=== PATIENT | female | born 1950 | race African-American/Black ===

== ENCOUNTER 2016-07-13 20:31 | Emergency (ER) | payer MEDICAID | END 2016-07-13 20:50 | disposition left against medical advice (07) | LOC: ER 20:31 | DX: I10 Essential (primary) hypertension (principal); M79.603 Pain in arm, unspecified ==

== ENCOUNTER 2016-07-22 09:16 | Inpatient (IN) | payer MEDICAID ==
--- NOTE | 2016-07-22 09:31 | ED Physician Chart ---
Chief Complaint/HPI - Patient Information Date Seen:: 07/22/16 Time Seen:: 09:29 Chief Complaint:: sob History of Present Illness:: pt here for asthma exacerbation. has severe sob today despite recent use of a albuterol mdi and mucinex. has a cough prod of yellow sputum. no fever. pos st. no leg edema or pain. prior smoking hx....none recently. no known hx of cad or dm. chest sore w breathing but no cp at rest Allergies:: Allergies Allergy/AdvReac Type Severity Reaction Status Date / Time flu vaccine ts Allergy Verified 01/13/16 00:40 (36mos+) [From Fluarix] meperidine HCl [From Demerol] Allergy Verified 01/13/16 00:40 Historian:: Patient Review of Systems - Review of Systems General/Constitutional: No fever, No chills, No weight loss, No weakness, No diaphoresis, No edema, No loss of appetite Skin: No skin lesions, No rash, No bruising Head: No headache, No light-headedness Eyes: No loss of vision, No pain, No diplopia ENT: No earache, No nasal drainage, No sore throat, No tinnitus Neck: No neck pain, No swelling, No thyromegaly, No stiffness, No mass noted Cardio Vascular: No chest pain, No palpitations, No PND, No orthopnea, No edema Pulmonary: SOB, Cough, Sputum, Wheezing GI: No nausea, No vomiting, No diarrhea, No pain, No melena, No hematochezia, No constipation, No hematemesis G/U: No dysuria, No frequency, No hematuria Musculoskeletal: No bone or joint pain, No back pain, No muscle pain Endocrine: No polyuria, No polydipsia Psychiatric: No prior psych history, No depression, No anxiety, No suicidal ideation Hematopoietic: No bruising, No lymphadenopathy Allergic/Immuno: No urticaria, No angioedema Neurological: No syncope, No focal symptoms, No weakness, No paresthesia, No headache, No seizure, No dizziness, No confusion, No vertigo Past Medical History - Past Medical History Past Medical History: HTN, CHF (?pt denies this dx but...gets intermittent leg edema), Asthma/COPD, Other ("Renny Autoimmune dz") Social History: Non Smoker (quit x 7 yrs), No Alcohol Medication: Reviewed Family Medical History - Family Member Mother History Unknown: Yes Ethnicity: Non- Living Status: Hx Family Diabetes: Yes Physical Exam - Physical Examination General/Constitutional: Awake, Well-developed, well-nourished, Alert, No distress, GCS 15, Non-toxic appearing, Ambulatory Other Gen/Cons comments:: alert.nontoxic, mod obese Head: Atraumatic Eyes: Lids, conjuctiva normal, PERRL, EOMI Skin: Nl inspection, No rash, No skin lesions, No ecchymosis, Well hydrated, No lymphadenopathy ENMT: External ears, nose nl, Nasal exam nl, Lips, teeth, gums nl Neck: Nontender, Full ROM w/o pain, No JVD, No nuchal rigidity, No bruit, No mass, No stridor Respiratory: Nl effort/Exclusion Other Respiratory comments:: loud wheezing and limited chest expansion. pt can speak full sentences. Cardio Vascular: RRR, No murmur, gallop, rubs, NL S1 S2 GI: No tenderness/rebounding/guarding, No organomegaly, No hernia, Normal BS's, Nondistended, No mass/bruits, No McBurney tenderness : No CVA tenderness Extremities: No tenderness or effusion, Full ROM, normal strength in all extremities, No edema, Normal digits & nails Other Extremities comments:: no edema. no homans sx Neuro/Psych: Alert/oriented, DTR's symmetric, Normal sensory exam, Normal motor strength, Judgement/insight normal, Mood normal, Normal gait, No focal deficits Misc: normal gait, Normal back, No paraspinal tenderness Labs/Radiology/EKG Results - Lab Results Results: Laboratory Tests 07/22/16 07/22/16 07/22/16 09:47 09:47 09:47 WBC 5.7 RBC 4.22 Hgb 12.3 Hct 37.6 MCV 89.0 MCH 29.2 MCHC Differential 32.9 RDW 14.1 Plt Count 247 MPV 9.2 Neutrophils % 68.8 Lymphocytes % 18.2 L Monocytes % 7.4 Eosinophils % 5.3 H Basophils % 0.3 Sodium 138 Potassium 3.7 Chloride 107 Carbon Dioxide 26.8 Anion Gap 7.9 BUN 10 Creatinine 0.8 Est GFR ( Amer) > 60.0 Est GFR (Non-Af Amer) > 60.0 BUN/Creatinine Ratio 12.5 Glucose 93 Calcium 9.3 Total Bilirubin 0.4 AST 17 ALT 13 Alkaline Phosphatase 89 Troponin I < 0.01 L Total Protein 7.8 Albumin 4.1 Globulin 3.7 Albumin/Globulin Ratio 1.1 - Radiology Results Results: cxr read by lisa Ayala as chronic changes no chf. no focal infiltrate - EKG Interpretations EKG Time:: 09:50 Rhythm: nsr [place]: 36 Rate: 61 Comments:: wnl ED Septic Shock - . Is Septic Shock (SBP<90, OR Lactate>4 mmol\\L) present?: No Reassessment (Disposition) - Reassessment Reassessment:: pt still is feeling sob. wheezing persists despite 2 duonebs and 125 solumedrol. pt not feeling well enough to go home. loren Conde will admit to tele Reassessment Condition:: Improved - Diagnosis Diagnosis:: asthma exacerbation bronchitis - Patient Disposition Admitted to:: Telemetry Condition at Disposition:: Improved
[2016-07-22] MEDS ORDERED: Albuterol/Ipratropium Neb 3 ML AERS HHN ONE ×4 (09:32→11:06)
[2016-07-22 09:57] LABS: % BASOPHILS 0.3 % (0.0-2.0); % EOSINOPHILS 5.3 % (0.0-5.0); % LYMPHOCYTES 18.2 % (20.0-50.0); % MONOCYTES 7.4 % (2.0-10.0); % NEUTROPHILS 68.8 % (40.0-80.0); HEMATOCRIT 37.6 % (35.0-45.0); HEMOGLOBIN 12.3 gm/dL (11.7-15.5); MEAN CORPUSCULAR HEMOGLOBIN 29.2 pg (27.0-31.0); MEAN CORPUSCULAR HGB CONC 32.9 pg (28.0-36.0); MEAN PLATELET VOLUME 9.2 fl; PLATELET COUNT 247 Th/cmm (150-400); RED BLOOD COUNT 4.22 Mil/cmm (3.80-5.10); RED CELL DISTRIBUTION WIDTH 14.1 % (11.5-20.0); WHITE BLOOD COUNT 5.7 Th/cmm (4.8-10.8)
[2016-07-22 10:13] LABS: ALB/GLOB RATIO 1.1 (1.0-1.8); ALKALINE PHOSPHATASE 89 U/L (34-104); ANION GAP 7.9 (7.0-16.0); BILIRUBIN,TOTAL 0.4 mg/dL (0.3-1.0); BUN - UREA NITROGEN 10 mg/dL (7-25); BUN/CREATININE RATIO 12.5; CALCIUM SERUM 9.3 mg/dL (8.6-10.3); CARBON DIOXIDE 26.8 mEq/L (21.0-31.0); CHLORIDE 107 mEq/L (98-107); CREATININE - SERUM 0.8 mg/dL (0.6-1.2); GLUCOSE 93 mg/dL (70-105); POTASSIUM SERUM 3.7 mEq/L (3.5-5.1); SGOT 17 U/L (13-39); SGPT/ALT 13 U/L (7-52); SODIUM SERUM 138 mEq/L (136-145)
--- NOTE | 2016-07-22 10:41 | Diagnostic Imaging Report ---
Chest single view INDICATION: Yellow productive cough, shortness of breath COMPARISON: Chest x-ray 09/17/2014 FINDINGS: Chronic lung changes are seen with no focal consolidation or pleural effusions. Heart size is borderline prominent. Atherosclerosis is noted. Degenerative changes of spine are noted with spinal scoliosis. Degenerative changes of the shoulder joints are also noted. IMPRESSION: Chronic lung changes with no focal consolidation or radiographic evidence of CHF Borderline cardiomegaly with atherosclerotic vascular disease.
--- NOTE | 2016-07-22 14:34 | Admit Criteria Form ---
Admit Criteria Forms - Admit Criteria Diagnosis: ASTHMA Clinical Indications for Admission to Inpatient Care (Place 'X' for any and all applicable criteria): Admission is indicated for ANY ONE of the following (1)(2)(3)(4)(5): [ ]I. Absent or markedly diminished breath sounds (silent chest) [ ]II. Oxygen saturation < 92% [ ]III. PaCO2 = / > 42 mm Hg (5.6 kPa) [ ]IV. Peak expiratory flow rate < 40% of predicted or personal best after treatment. [ ]V. Peak expiratory flow rate < 33% of predicted or personal before after treatment [ ]. Change in mental status [ ]VII. Ventilatory support required [ ]VIII. PaO2 < 60 mm Hg (8.0 kPa) [ ]IX. Cyanosis [ ]X. Cardiac dysrhythmia (e.g., bradycardia) [ ]XI. Hemodynamic instability [ ]XII. Radiographic evidence of complication requiring inpatient treatment (e.g., pneumonia, pneumothorax) [ X]XIII. Inpatient admission required rather than observation care (also use Asthma: Observation Care guideline as appropriate) because of ANY ONE of the following: [ ]a) Respiratory finding that is severe or persistent (eg, dyspnea, tachypnea, accessory muscle use) [ ]b) Airflow measurements less than 60% of predicted or personal best that persist (e.g., over 24 hours) or worsen despite treatments [ ]c) Supplemental oxygen or respiratory treatments for over 24 hours that are performable only in acute inpatient setting [X ]d) Other condition, treatment or monitoring requiring inpatient admission. Extended stay beyond goal length of stay may be needed for (26)(27)(28): [ ]a) Severe respiratory failure (23) (29) (30) [ ]b) Secondary causes and complications (25) [ ]c) Status asthmaticus [ ]d) Chronic obstructive asthma [ ]e) Older patients (29) [ ]f) Slow resolution [ ]g) Clinically significant exacerbation of comorbidities (eg, patricio. heart failure, atrial fibrillation) The original [email or web address] content created by [email or web address] has been revised. The portions of the content which have been revised are identified through the use of italic text or in bold, and [facility] has neither reviewed nor approved the modified material. All other unmodified content is copyright [facility] Please see references footnoted in the original [facility] edition 2016 Admit Criteria Met?: Yes
[2016-07-22 15:08] VITALS: BP 133/69
[2016-07-22] MEDS: Hydrocodone/APAP 10 mg/325 mg Tab PO PRN (15:29)
[2016-07-22] MEDS: Sodium Chloride 0.9% 1,000 ML IV SCH (15:30)
[2016-07-22] MEDS: cefTRIAXone 1 GM in Sodium Chloride 0.9% 100 ML IV SCH (15:30)
[2016-07-22] MEDS: Albuterol/Ipratropium Neb 3 ML AERS HHN SCH ×3 (16:08→23:09)
[2016-07-22] MEDS: Azithromycin 500 MG in Sodium Chloride 0.9% 250 ML IV SCH (16:39)
[2016-07-22] MEDS: Hydroxychloroquine 200 mg Tab PO SCH (16:40)
[2016-07-23] MEDS: Albuterol/Ipratropium Neb 3 ML AERS HHN SCH ×7 (03:52→23:11)
[2016-07-23] MEDS: Hydroxychloroquine 200 mg Tab PO SCH ×2 (09:04→17:51)
[2016-07-23] MEDS: Hydrocodone/APAP 10 mg/325 mg Tab PO PRN (09:14)
--- NOTE | 2016-07-23 10:49 | Diagnostic Imaging Report ---
Portable chest x-ray HISTORY: Shortness of breath, asthma The heart is enlarged. Atherosclerotic calcination seen in the aorta. No acute focal pulmonary processes. IMPRESSION: 1. Cardiomegaly with atherosclerotic vascular changes 2. No acute focal pulmonary processes
[2016-07-23] MEDS ORDERED: Promethazine DM 6.25/15mg-5mL 5 ML SYR PO PRN (10:59)
[2016-07-23] MEDS: Sodium Chloride 0.9% 1,000 ML IV SCH (11:41)
--- NOTE | 2016-07-23 13:30 | History & Physical ---
CHIEF COMPLAINT: Shortness of breath. HISTORY OF PRESENT ILLNESS: This is a 65-year-old -Citizen Of [place] lady with history of asthma, COPD, history of hypertension and Behcet's autoimmune disease who was admitted to [facility] a few months ago for similar symptoms. The patient states that she has been having worsening shortness of breath x 3-4 days to the point that she needed to come to the ER. She was given multiple breathings treatments and steroids, but her wheezing did not improve much. Therefore, she has been admitted to a telemetry reyna for further management and care. The patient states that she has stopped taking steroids because of weight gain over the last year or so. PAST MEDICAL HISTORY: As noted above. PAST SURGICAL HISTORY: No recent surgeries. FAMILY HISTORY: No history of asthma. Positive for diabetes. SOCIAL HISTORY: She used to smoke, quit about 7 years ago. No ETOH or illicit drug usage. PHYSICAL EXAMINATION: VITAL SIGNS: Temperature 97.3, pulse 79, respirations 18-20, BP 146/73, satting 99% on room air. GENERAL: She is a well-developed, well-nourished female sitting up in bed and some shortness of breath, speaking in 2-3 words sentences. HEAD AND NECK: Normocephalic, atraumatic. Pupils reactive to light. Extraocular movements are intact. Oropharynx moist and clear. CARDIAC: Regular rate and rhythm with no audible murmurs. LUNGS: She has inspiratory and expiratory wheezing throughout all lung valle. ABDOMEN: Soft, supple, nontender, nondistended, normoactive bowel sounds. EXTREMITIES: There is no pedal edema in lower extremities. LABORATORY DATA: Her CBC was essentially within normal limits with 18% lymphocytes and chemistry was within normal limits. Troponins were negative x 1 set. DIAGNOSTICS: Chest x-ray shows chronic lung changes with no focal consolidation or evidence of CHF. There is a borderline cardiomegaly and atherosclerotic vascular disease and EKG shows sinus rhythm at a rate of 61. There are atrial premature complexes. There are no ST elevations or depressions. IMPRESSION: 1. Acute asthma exacerbation. 2. History of chronic obstructive pulmonary disease/asthma. 3. History of essential hypertension. 4. History of congestive heart failure. 5. History of Behcet's syndrome. PLAN: The patient has been admitted to telemetry for close monitoring and treatment. The patient has been started on Solu-Medrol 60 mg IV q. 6 and empiric IV antibiotics. A Pulmonary consult will also be asked for further management and care. The patient will be kept on her other medications as scheduled. She also has been started on DuoNeb q. 4 hours while awake and p.r.n. She will be started in Singulair and inhaled steroids. [facility]# [id number]
[2016-07-23] MEDS: cefTRIAXone 1 GM in Sodium Chloride 0.9% 100 ML IV SCH (14:14)
[2016-07-23] MEDS: Azithromycin 500 MG in Sodium Chloride 0.9% 250 ML IV SCH (15:20)
[2016-07-23] MEDS: Codeine/Promethazine Susp 5 mL UDC PO PRN (19:55)
[2016-07-24] MEDS: Albuterol/Ipratropium Neb 3 ML AERS HHN SCH ×6 (02:54→22:48)
[2016-07-24] MEDS: Codeine/Promethazine Susp 5 mL UDC PO PRN (03:26)
[2016-07-24] MEDS: Sodium Chloride 0.9% 1,000 ML IV SCH (05:26)
[2016-07-24 05:40] LABS: HEMATOCRIT 36.1 % (35.0-45.0); MEAN CELL VOLUME 88.8 fl (81-100); MEAN CORPUSCULAR HEMOGLOBIN 29.5 pg (27.0-31.0); MEAN CORPUSCULAR HGB CONC 33.3 pg (28.0-36.0); MEAN PLATELET VOLUME 9.5 fl; PLATELET COUNT 256 Th/cmm (150-400); RED BLOOD COUNT 4.06 Mil/cmm (3.80-5.10); RED CELL DISTRIBUTION WIDTH 14.2 % (11.5-20.0)
[2016-07-24 06:16] LABS: WHITE BLOOD COUNT 16.1 Th/cmm (4.8-10.8)
[2016-07-24 06:27] LABS: ANION GAP 11.5 (7.0-16.0); BUN - UREA NITROGEN 18 mg/dL (7-25); CALCIUM SERUM 9.2 mg/dL (8.6-10.3); CARBON DIOXIDE 21.3 mEq/L (21.0-31.0); CHLORIDE 111 mEq/L (98-107); CREATININE - SERUM 0.9 mg/dL (0.6-1.2); GLUCOSE 293 mg/dL (70-105); POTASSIUM SERUM 3.8 mEq/L (3.5-5.1); SODIUM SERUM 140 mEq/L (136-145)
[2016-07-24] MEDS: Hydroxychloroquine 200 mg Tab PO SCH ×2 (08:56→17:25)
[2016-07-24 09:39] LABS: BAND NEUTROPHILE 5 % (0-10); NEUTROPHILS 87 % (40-80); PLATELET ESTIMATE ADEQUATE (NORMAL); PLATELET MORPHOLOGY GIANT PLATELETS SEEN (NORMAL); TOTAL CELLS COUNTED 100
[2016-07-24] MEDS ORDERED: methylPREDNISolone SS 40 mg Vial IM SCH (13:15)
[2016-07-24] MEDS ORDERED: Albuterol/Ipratropium Neb 3 ML AERS HHN PRN (13:29)
[2016-07-24] MEDS: cefTRIAXone 1 GM in Sodium Chloride 0.9% 100 ML IV SCH (13:47)
[2016-07-24] MEDS: Azithromycin 500 MG in Sodium Chloride 0.9% 250 ML IV SCH (15:08)
--- NOTE | 2016-07-24 16:37 | Consultation ---
Patient of Dr. Conde. Thank you Dr. Conde for this consultation. HISTORY OF PRESENT ILLNESS: This is a 65-year-old female with history of COPD since 2008, presented with acute respiratory distress, shortness of breath, wheezing, cough ____ few days, admitted for further treatment and management. The patient says she is a smoker for over 30 years and quit about 7 years ago. Feels little bit better but still with cough and wheezing. PAST MEDICAL HISTORY: As above. SOCIAL HISTORY: As above. PHYSICAL EXAMINATION: GENERAL: Awake, alert, not in acute distress. VITAL SIGNS: Temperature is 97.3, pulse is 94, respirations 22, blood pressure 146/70, saturation 97% room air. HEENT: Atraumatic, normocephalic. Pupils reactive to light and accommodation. Ears, nose and throat normal. NECK: Supple. No JVD. CHEST: There is diffuse wheezing and rhonchi bilaterally. HEART: Regular rate. ABDOMEN: Soft. EXTREMITIES: No edema. LABORATORY DATA: WBC is 5.7, hemoglobin 12.3. potassium 3.7, BUN is 10, creatinine 0.8. Chest x-ray: COPD changes, no acute infiltrate. IMPRESSION: This is a 65-year-old female with acute chronic obstructive pulmonary exacerbation and acute bronchitis. PLAN: 1. IV Solu-Medrol. 2. Nebulizer. 3. Pulmonary toilet. 4. IV antibiotics. 5. Cough medicine. We will follow the patient with you. Thank you very much for this consultation. JOB# [id number] [facility]
[2016-07-24] MEDS: Hydrocodone/APAP 10 mg/325 mg Tab PO PRN (20:25)
--- NOTE | 2016-07-24 21:32 | Discharge Summary ---
ADMITTING DIAGNOSES: Shortness of breath, asthma, COPD exacerbation. SECONDARY DIAGNOSES: Include history of COPD, asthma, history of essential hypertension, history of CHF, history of Behcet's syndrome. DISCHARGE DIAGNOSES: Shortness of breath; asthma, improved; COPD exacerbation. DISCHARGE MEDICATIONS: Prednisone taper, Levaquin 500 p.o. daily x 10 days, Singulair 10 mg at bedtime, Protonix 40 mg every day, Phenergan DM 10 mL q. 4 hours p.r.n. for cough, DuoNeb q. 4 hours p.r.n. for SOB. CONSULTANTS: Dr. Marshall. MAJOR PROCEDURES: No major procedures on this admission. BRIEF HOSPITAL COURSE: A 65-year-old -Polish female with history of asthma, COPD, who presented to the ER with 3-4 day history of worsening shortness of breath and wheezing. She also has cough, mostly nonproductive, but denied any fever or chills. This episode is consistent with her previous episodes in the past. The patient was admitted to telemetry and placed on empiric IV antibiotics, IV steroids and pulmonary supportive care. Her vital signs remained stable since admission and her labs also were within normal limits on admission. Chest x-ray done on admission and another x-ray done as a follow up did not show any acute focal processes. The patient's clinical status has improved with improvement of her shortness of breath and wheezing. CONDITION ON DISCHARGE: Stable. DISPOSITION: The patient will be discharged home and was encouraged to follow up with her primary care doctor within 2 to 3 days and pulmonary followup given her asthma and COPD history. CONDITION ON DISCHARGE: Stable. JOB# [id number] [facility]
[2016-07-25] MEDS: Codeine/Promethazine Susp 5 mL UDC PO PRN ×4 (01:31→20:15)
[2016-07-25] MEDS: Albuterol/Ipratropium Neb 3 ML AERS HHN SCH ×6 (02:58→23:00)
[2016-07-25] MEDS: Sodium Chloride 0.9% 1,000 ML IV SCH (05:33)
[2016-07-25 07:55] LABS: HEMATOCRIT 33.1 % (35.0-45.0); MEAN CORPUSCULAR HEMOGLOBIN 29.5 pg (27.0-31.0); MEAN CORPUSCULAR HGB CONC 33.1 pg (28.0-36.0); MEAN PLATELET VOLUME 9.4 fl; PLATELET COUNT 239 Th/cmm (150-400); RED BLOOD COUNT 3.72 Mil/cmm (3.80-5.10)
[2016-07-25 07:59] LABS: BUN - UREA NITROGEN 17 mg/dL (7-25); BUN/CREATININE RATIO 21.3; CALCIUM SERUM 9.1 mg/dL (8.6-10.3); CARBON DIOXIDE 24.6 mEq/L (21.0-31.0); CHLORIDE 109 mEq/L (98-107); CREATININE - SERUM 0.8 mg/dL (0.6-1.2); GLUCOSE 315 mg/dL (70-105); POTASSIUM SERUM 3.6 mEq/L (3.5-5.1); SODIUM SERUM 139 mEq/L (136-145)
[2016-07-25 08:02] LABS: WHITE BLOOD COUNT 12.4 Th/cmm (4.8-10.8)
[2016-07-25] MEDS: Hydroxychloroquine 200 mg Tab PO SCH ×2 (08:36→16:11)
[2016-07-25] MEDS: Hydrocodone/APAP 10 mg/325 mg Tab PO PRN (09:48)
[2016-07-25 09:56] LABS: NEUTROPHILS 89 % (40-80); TOTAL CELLS COUNTED 100
[2016-07-25 09:57] LABS: PLATELET ESTIMATE ADEQUATE (NORMAL); PLATELET MORPHOLOGY NORMAL (NORMAL)
[2016-07-25] MEDS: cefTRIAXone 1 GM in Sodium Chloride 0.9% 100 ML IV SCH (13:22)
[2016-07-25] MEDS: Azithromycin 500 MG in Sodium Chloride 0.9% 250 ML IV SCH (14:52)
[2016-07-25] MEDS: INSULIN ASPART SLIDING SCALE 100 UNITS/ML UNIT SUBQ SCH ×2 (16:41→20:21)
[2016-07-25] MEDS ORDERED: INSULIN ASPART, RECOMBINANT 100 UNITS/ML SUBQ ONE (17:29)
[2016-07-26] MEDS: Sodium Chloride 0.9% 1,000 ML IV SCH ×2 (00:38→22:20)
[2016-07-26] MEDS: Albuterol/Ipratropium Neb 3 ML AERS HHN SCH ×6 (02:29→23:04)
[2016-07-26] MEDS: Codeine/Promethazine Susp 5 mL UDC PO PRN ×4 (04:20→22:24)
[2016-07-26 06:39] LABS: ANION GAP 6.8 (7.0-16.0); BUN - UREA NITROGEN 19 mg/dL (7-25); BUN/CREATININE RATIO 23.8; CALCIUM SERUM 8.9 mg/dL (8.6-10.3); CARBON DIOXIDE 27.9 mEq/L (21.0-31.0); CHLORIDE 107 mEq/L (98-107); CREATININE - SERUM 0.8 mg/dL (0.6-1.2); GLUCOSE 199 mg/dL (70-105); POTASSIUM SERUM 3.7 mEq/L (3.5-5.1); SODIUM SERUM 138 mEq/L (136-145)
[2016-07-26 06:43] LABS: HEMATOCRIT 34.7 % (35.0-45.0); HEMOGLOBIN 11.5 gm/dL (11.7-15.5); MEAN CELL VOLUME 88.4 fl (81-100); MEAN CORPUSCULAR HEMOGLOBIN 29.3 pg (27.0-31.0); MEAN CORPUSCULAR HGB CONC 33.1 pg (28.0-36.0); MEAN PLATELET VOLUME 8.9 fl; PLATELET COUNT 281 Th/cmm (150-400); RED BLOOD COUNT 3.93 Mil/cmm (3.80-5.10); RED CELL DISTRIBUTION WIDTH 14.1 % (11.5-20.0); WHITE BLOOD COUNT 13.3 Th/cmm (4.8-10.8)
[2016-07-26] MEDS: INSULIN ASPART SLIDING SCALE 100 UNITS/ML UNIT SUBQ SCH ×4 (06:44→20:24)
[2016-07-26 07:37] LABS: BAND NEUTROPHILE 1 % (0-10); METAMYELOCYTE 2 % (0-0); NEUTROPHILS 81 % (40-80); PLATELET ESTIMATE ADEQUATE (NORMAL); PLATELET MORPHOLOGY NORMAL (NORMAL); TOTAL CELLS COUNTED 100
[2016-07-26] MEDS: Hydroxychloroquine 200 mg Tab PO SCH ×2 (08:57→16:20)
[2016-07-26] MEDS: Hydrocodone/APAP 10 mg/325 mg Tab PO PRN ×3 (09:07→20:22)
[2016-07-26] MEDS: cefTRIAXone 1 GM in Sodium Chloride 0.9% 100 ML IV SCH (13:24)
[2016-07-26] MEDS: Azithromycin 500 MG in Sodium Chloride 0.9% 250 ML IV SCH (15:06)
[2016-07-27] MEDS: Albuterol/Ipratropium Neb 3 ML AERS HHN SCH ×3 (03:27→10:47)
[2016-07-27] MEDS: Codeine/Promethazine Susp 5 mL UDC PO PRN ×2 (06:29→14:17)
[2016-07-27] MEDS: INSULIN ASPART SLIDING SCALE 100 UNITS/ML UNIT SUBQ SCH ×2 (06:30→12:12)
[2016-07-27 07:22] LABS: HEMOGLOBIN 11.5 gm/dL (11.7-15.5); MEAN CELL VOLUME 89.3 fl (81-100); MEAN CORPUSCULAR HEMOGLOBIN 30.2 pg (27.0-31.0); MEAN CORPUSCULAR HGB CONC 33.8 pg (28.0-36.0); MEAN PLATELET VOLUME 9.3 fl; PLATELET COUNT 256 Th/cmm (150-400); RED BLOOD COUNT 3.81 Mil/cmm (3.80-5.10); RED CELL DISTRIBUTION WIDTH 14.1 % (11.5-20.0); WHITE BLOOD COUNT 13.3 Th/cmm (4.8-10.8)
[2016-07-27] MEDS: Hydroxychloroquine 200 mg Tab PO SCH (09:14)
[2016-07-27 09:36] LABS: BAND NEUTROPHILE 8 % (0-10); METAMYELOCYTE 1 % (0-0); NEUTROPHILS 71 % (40-80); PLATELET ESTIMATE ADEQUATE (NORMAL); PLATELET MORPHOLOGY NORMAL (NORMAL); TOTAL CELLS COUNTED 100
--- NOTE | 2016-07-27 11:20 | Diagnostic Imaging Report ---
Portable chest x-ray HISTORY: Shortness of breath Compared with prior exam of July 23, 2016, the heart appears enlarged. There is density in the left lower hemithorax and the costophrenic angle. The findings suggest a small pleural effusion. Suggestion of a minimal right pleural effusion also noted. IMPRESSION: 1. Cardiomegaly with suggestion of small bilateral pleural effusions.
[2016-07-27] MEDS: Hydrocodone/APAP 10 mg/325 mg Tab PO PRN (12:19)
== END 2016-07-27 14:28 | disposition home or self-care (01) | DRG 140 ==
LOC: ER 09:16 → TELE 12:45 → MSI 07-24 11:53
PROVIDERS: ADMIT Internal Medicine; ATTEND Internal Medicine
DX: J44.0 Chronic obstructive pulmonary disease with (acute) lower respiratory infection (principal); J96.00 Acute respiratory failure, unspecified whether with hypoxia or hypercapnia; J44.1 Chronic obstructive pulmonary disease with (acute) exacerbation; M35.2 Behcet's disease; I50.9 Heart failure, unspecified; J45.901 Unspecified asthma with (acute) exacerbation; E11.9 Type 2 diabetes mellitus without complications; T38.0X5A Adverse effect of glucocorticoids and synthetic analogues, initial encounter; Y92.89 Other specified places as the place of occurrence of the external cause; E66.9 Obesity, unspecified; I11.0 Hypertensive heart disease with heart failure; J20.9 Acute bronchitis, unspecified; Z87.891 Personal history of nicotine dependence; Z88.8 Allergy status to other drugs, medicaments and biological substances; Z88.7 Allergy status to serum and vaccine; Z68.30 Body mass index [BMI] 30.0-30.9, adult
CPT/HCPCS: 36415-UA; 71010-TC; 80048-TC; 80053-TC; 82948-90; 83036-90; 83735-TC; 83880-TC; 84484-TC; 85007-TC; 85025-TC; 85027-TC; 93005; 94640; 94760; 96374; C9113; J0456; J0696; J1815; J2930; J7030; J7500; Z7610

== ENCOUNTER 2016-08-07 00:04 | Inpatient (IN) | payer MEDICAID, MEDICARE ==
--- NOTE | 2016-08-07 00:23 | ED Physician Chart ---
Chief Complaint/HPI - Patient Information Date Seen:: 08/07/16 Time Seen:: 00:10 Chief Complaint:: headache, elevated blood sugar and hypertension History of Present Illness:: Patient developed headache, left superior chest pain, elevated blood sugar and a blood pressure of 160 systolic tonight at home. She then called the ambulance to transport her to the hospital. Patient was hospitalized here about 11 days ago for COPD exacerbation she was discharged one week ago. Allergies:: Allergies Allergy/AdvReac Type Severity Reaction Status Date / Time flu vaccine ts Allergy Verified 01/13/16 00:40 2012-(36mos+) [From Fluarix] meperidine HCl [From Demerol] Allergy Verified 01/13/16 00:40 Historian:: Patient, EMS Review:: Nurse's Note Reviewed Review of Systems - Review of Systems General/Constitutional: No fever, No chills Skin: Skin lesions Head: Headache Eyes: No loss of vision ENT: No earache Neck: No neck pain Cardio Vascular: Chest pain Pulmonary: No SOB GI: No nausea, No vomiting G/U: No dysuria Musculoskeletal: No bone or joint pain Endocrine: No polyuria, No polydipsia Psychiatric: No prior psych history Hematopoietic: No bruising Allergic/Immuno: No urticaria Neurological: No syncope, Headache Past Medical History - Past Medical History Past Medical History: HTN, DM, Asthma/COPD, Other (Behcat's syndrome) Family History: Other (CHF) Social History: Non Smoker, Other (quit smoking 7 years ago) Surgical History: other (removal of tumors associated with Behcat's syndrome) Psychiatricy History: None Family Medical History - Family Member Mother History Unknown: Yes Ethnicity: Non- Living Status: Hx Family Diabetes: Yes Physical Exam - Physical Examination General/Constitutional: Well-developed, well-nourished, Alert, No distress Head: Atraumatic Eyes: Lids, conjuctiva normal, PERRL Skin: No lymphadenopathy ENMT: External ears, nose nl, TM canals nl Other ENMT comments:: 3/4 gum retraction Neck: No nuchal rigidity Other Respiratory comments:: scattered 1.5/4 wheezing Cardio Vascular: RRR, No murmur, gallop, rubs, NL S1 S2 GI: No tenderness/rebounding/guarding, No organomegaly, No hernia, Nondistended , No mass/bruits : No CVA tenderness Extremities: Normal digits & nails Neuro/Psych: No focal deficits Labs/Radiology/EKG Results - Lab Results Comments:: Laboratory Results - last 24 hr 08/07/16 08/07/16 08/07/16 00:33 00:33 00:33 WBC 9.5 D RBC 4.40 Hgb 13.1 Hct 39.0 D MCV 88.7 MCH 29.7 MCHC Differential 33.5 RDW 15.0 Plt Count 218 MPV 8.9 Neutrophils % 80.5 H Lymphocytes % 12.6 L Monocytes % 6.8 Eosinophils % 0.1 Basophils % 0.0 Sodium 130 L Potassium 4.5 Chloride 97 L Carbon Dioxide 23.8 Anion Gap 13.7 BUN 26 H Creatinine 1.1 Est GFR ( Amer) > 60.0 Est GFR (Non-Af Amer) 53.1 BUN/Creatinine Ratio 23.6 Glucose 598 H* POC Glucose Calcium 9.0 Troponin I 0.01 Acetaminophen 08/07/16 08/07/16 08/07/16 00:33 00:39 01:51 WBC RBC Hgb Hct MCV MCH MCHC Differential RDW Plt Count MPV Neutrophils % Lymphocytes % Monocytes % Eosinophils % Basophils % Sodium Potassium Chloride Carbon Dioxide Anion Gap BUN Creatinine Est GFR ( Amer) Est GFR (Non-Af Amer) BUN/Creatinine Ratio Glucose POC Glucose 551 H* 536 H* Calcium Troponin I Acetaminophen < 10.0 L - EKG Interpretations Rhythm: NSR [place]: normal Rate: 78 Comments:: Q waves in III and AVF ED Septic Shock - . Is Septic Shock (SBP<90, OR Lactate>4 mmol\L) present?: No Reassessment (Disposition) - Reassessment Reassessment:: After patient having received 1 L normal saline IV 15 units of regular insulin subcutaneous and then 10 units of regular insulin subcutaneous patient's blood sugar only went down to 440. Patient's being admitted to MedSurg unit for diabetes with uncontrolled blood sugar. Reassessment Condition:: Improved - Patient Disposition Admitted to:: Med/Surg Spoke to:: Killian Conde Admitting Medical Physician:: Killian Conde Condition at Disposition:: Stable, Improved
[2016-08-07 00:42] LABS: % EOSINOPHILS 0.1 % (0.0-5.0); % LYMPHOCYTES 12.6 % (20.0-50.0); % MONOCYTES 6.8 % (2.0-10.0); % NEUTROPHILS 80.5 % (40.0-80.0); HEMOGLOBIN 13.1 gm/dL (11.7-15.5); MEAN CELL VOLUME 88.7 fl (81-100); MEAN CORPUSCULAR HEMOGLOBIN 29.7 pg (27.0-31.0); MEAN CORPUSCULAR HGB CONC 33.5 pg (28.0-36.0); MEAN PLATELET VOLUME 8.9 fl; NEUTROPHILE ABSOLUTE 7.7 Th/cmm (1.8-8.0); PLATELET COUNT 218 Th/cmm (150-400)
[2016-08-07 00:43] LABS: WHITE BLOOD COUNT 9.5 Th/cmm (4.8-10.8)
[2016-08-07] MEDS ORDERED: INSULIN HUMAN REGULAR 100 UNITS/ML UNIT ONE (00:45)
[2016-08-07] MEDS ORDERED: INSULIN HUMAN REGULAR 100 UNITS/ML UNIT SUBQ ONE ×2 (00:50→03:59)
[2016-08-07 01:00] LABS: ANION GAP 13.7 (7.0-16.0); BUN - UREA NITROGEN 26 mg/dL (7-25); BUN/CREATININE RATIO 23.6; CARBON DIOXIDE 23.8 mEq/L (21.0-31.0); CHLORIDE 97 mEq/L (98-107); CREATININE - SERUM 1.1 mg/dL (0.6-1.2); POTASSIUM SERUM 4.5 mEq/L (3.5-5.1); SODIUM SERUM 130 mEq/L (136-145)
[2016-08-07 01:01] LABS: GLUCOSE 598 mg/dL (70-105)
[2016-08-07] MEDS ORDERED: Sodium Chloride 0.9% 1,000 ML IV ONE ×2 (03:56→04:20)
[2016-08-07] MEDS ORDERED: Hydrocodone/APAP 10 mg/325 mg Tab PO PRN (04:37)
[2016-08-07 05:49] LABS: HEMATOCRIT 37.3 % (35.0-45.0); HEMOGLOBIN 12.6 gm/dL (11.7-15.5); MEAN CELL VOLUME 88.2 fl (81-100); MEAN CORPUSCULAR HEMOGLOBIN 29.8 pg (27.0-31.0); MEAN CORPUSCULAR HGB CONC 33.8 pg (28.0-36.0); MEAN PLATELET VOLUME 8.5 fl; PLATELET COUNT 220 Th/cmm (150-400); RED BLOOD COUNT 4.23 Mil/cmm (3.80-5.10); RED CELL DISTRIBUTION WIDTH 14.8 % (11.5-20.0)
[2016-08-07 06:01] LABS: ALB/GLOB RATIO 1.3 (1.0-1.8); ALKALINE PHOSPHATASE 88 U/L (34-104); BILIRUBIN,TOTAL 0.4 mg/dL (0.3-1.0); BUN - UREA NITROGEN 25 mg/dL (7-25); BUN/CREATININE RATIO 27.8; CALCIUM SERUM 8.8 mg/dL (8.6-10.3); CHLORIDE 106 mEq/L (98-107); CREATININE - SERUM 0.9 mg/dL (0.6-1.2); GLUCOSE 264 mg/dL (70-105); SGOT 8 U/L (13-39); SGPT/ALT 21 U/L (7-52); SODIUM SERUM 138 mEq/L (136-145)
[2016-08-07 06:44] LABS: TOTAL CELLS COUNTED 100
[2016-08-07 06:45] LABS: NEUTROPHILS 83 % (40-80); PLATELET ESTIMATE ADEQUATE (NORMAL); PLATELET MORPHOLOGY NORMAL (NORMAL)
[2016-08-07] MEDS: INSULIN ASPART SLIDING SCALE 100 UNITS/ML UNIT SUBQ SCH ×3 (06:58→16:43)
[2016-08-07] MEDS: Hydroxychloroquine 200 mg Tab PO SCH ×2 (08:44→16:25)
[2016-08-07] MEDS ORDERED: Pantoprazole 40 mg EC Tab PO SCH (09:00)
[2016-08-07] MEDS ORDERED: Sodium Chloride 0.9% 1,000 ML IV SCH (09:30)
--- NOTE | 2016-08-07 10:33 | History & Physical ---
CHIEF COMPLAINT: Headaches and glucose out of control. HISTORY OF PRESENT ILLNESS: This is a 65-year-old -[place] lady with history of asthma, COPD, hypertension, hyperglycemia upon steroid intake, who has never been diagnosed per her account with diabetes. Pt does have a history of Behcet's syndrome-previously seen by rheum. Pt was recently admitted to this facility about 2 weeks ago for COPD/asthma exacerbation and was discharged on prednisone. The patient states that she began to have headaches and abdominal pain roughly about 4-5 days ago and suspected that it was her sugar elevation given that she had taken IV steroids and prednisone while hospitalized. She felt nauseated, but denies any vomiting. She also reported frequent urination. She was seen in the ER, where pertinent findings include a glucose level of 598 and glucometer of 536. Given her symptomatology, she has been admitted to Telemetry for further management and care. Since admission, she reports improvement of her symptoms and her glucose has improved as well. On further questioning, she denies any chest pain and any dysuria, but as mentioned above, she recently was diagnosed with COPD exacerbation. PAST MEDICAL HISTORY: As noted above. PAST SURGICAL HISTORY: No recent surgeries. FAMILY HISTORY: Positive for diabetes. SOCIAL HISTORY: No tobacco, no ETOH or illicit drug usage. ALLERGIES: Allergic to flu vaccine and meperidine. OUTPATIENT MEDICATIONS: Fleischmanns 10/325 every 8 hour as needed for severe pain, Plaquenil 200 mg twice a day, lisinopril 40 mg every day, lorazepam 1 mg every 12 hours as needed for anxiety, Singulair 10 mg every day, Protonix 40 mg every day, Imuran 50 mg twice a day, prednisone 20 mg every day. REVIEW OF SYSTEMS: CONSTITUTIONAL: She denies any fever or chills, generalized weakness. CARDIAC: No chest pain, palpitations. PULMONARY: Much improved symptomatology from 2 weeks ago. Breathing is back to her baseline. GASTROINTESTINAL: Please refer to the HPI. GENITOURINARY: No dysuria, some polyuria reported. NEUROLOGIC: Reports no headaches, no syncope, mild blurry vision. PHYSICAL EXAMINATION: VITAL SIGNS: Temperature 97.2, pulse 74, respirations 18, BP 121/68, satting 97% on room air. GENERAL: Well-developed, obese female, awake, alert and oriented x3, not in acute distress. HEAD AND NECK: Normocephalic, atraumatic. Pupils are reactive to light. Extraocular movements are intact. Oropharynx is moist and clear. CARDIOVASCULAR: Regular rate and rhythm without any murmurs. LUNGS: Decreased, but clear to auscultation bilaterally. ABDOMEN: Soft, supple, nontender, nondistended, normoactive bowel sounds. LOWER EXTREMITIES: There is no pedal edema. LABORATORY DATA: On admission, CBC was essentially within normal limits. Sodium 130, potassium 4.5, chloride 97, CO2 26, glucose 598, hemoglobin A1c is 8.8. DIAGNOSTICS: EKG shows sinus rhythm at a rate of 78, no obvious ST elevations or depressions. IMPRESSION: 1. Newly diagnosed diabetes with glucose out of control. 2. History of steroid-induced diabetes. 3. Mild dehydration. 4. History of chronic obstructive pulmonary disease/asthma, stable. 5. History of Behcet's syndrome. PLAN: The patient was admitted to [facility] and has done well overnight with improvement of her glucose level. She has been placed on IV fluids and has been started on glipizide at 10 mg twice a day as well as metformin at 500 mg twice a day. She will remain on her prednisone given her recent episode of COPD exacerbation and also will remain on her all other medications as scheduled. I will ask dietary to go over ADA recommendations and I have stressed the importance of following up with her primary care doctor for further management and care. She also has been placed on an insulin sliding scale per hospital protocol. Now, dysphagia looks to be improved. We will advance diet as tolerated and we will discharge later on today, if not tomorrow morning. [facility]# [id number] [facility]
--- NOTE | 2016-08-07 11:10 | Diagnostic Imaging Report ---
Portable chest x-ray HISTORY: COPD, shortness of breath The heart appears enlarged. Atherosclerotic calcination seen in the aortic arch. No acute focal pulmonary processes. IMPRESSION: 1. No acute focal pulmonary processes 2. Cardiomegaly with atherosclerotic vascular changes
[2016-08-07] MEDS ORDERED: VTE Chemical Prophylaxis Screen/Admission MC PRN (11:16)
--- NOTE | 2016-08-07 19:53 | Discharge Summary ---
ADMITTING DIAGNOSES: Glucose out of control, headaches, nonspecific abdominal pain, and dehydration. DISCHARGE DIAGNOSES: New onset diabetes mellitus and dehydration, improved. SECONDARY DIAGNOSES: Include history of asthma, chronic obstructive pulmonary disease, history of hypertension, history of Behcet's syndrome. Hx of steroid induced diabetes melllitus. CONSULTANTS: No consultants were used during this admission. PROCEDURES: There were no major procedures done during this admission. MEDICATIONS ON DISCHARGE: Include metformin 500 mg b.i.d., glipizide 10 mg b.i.d. with meals, Lacey 10/325 q.8 p.r.n. for pain, Plaquenil 200 mg b.i.d., lisinopril 40 mg every day, lorazepam 1 mg q.12h. p.r.n. for anxiety, Singulair 10 mg every day, Protonix 40 mg every day, Imuran 50 mg b.i.d., and prednisone 10 mg as directed. BRIEF HOSPITAL COURSE: A 65-year-old, who was recently admitted for COPD exacerbation on daily prednisone, who has a history of steroid-induced diabetes, presented to the ER with headaches, abdominal pain, some nausea. She was noted to have glucose levels over 500 and sodium of 130. She was admitted and treated and placed on IV fluids and also was started on Glucophage and glipizide with improvement of her symptoms. She was also given Reglan and other supportive care. Her glucose levels have improved to a level of the high 200s and as mentioned above, the patient reports improvement of her symptomatology. The patient also was instructed by dietitian on an ADA 1800 diet. Her hemoglobin A1c was also noted to be high at 8.8. DISPOSITION: The patient will be discharged home to self-care. The patient was prescribed a glucometer and nursing staff instructed her on how to use this device on a daily basis. I also emphasized the importance of following up her primary care doctor to follow up on her diabetes and possible a referral to an electronics system mechanic. She also needs to follow up with her primary care doctor for a rheumatology referral given her Behcet's syndrome. CONDITION ON DISCHARGE: Stable. [facility]# [id number] [facility]
== END 2016-08-07 18:00 | disposition home or self-care (01) | DRG 420 ==
LOC: ER 00:04 → TELE 04:25
PROVIDERS: ADMIT Internal Medicine; ATTEND Internal Medicine
DX: E11.65 Type 2 diabetes mellitus with hyperglycemia (principal); M35.2 Behcet's disease; I11.0 Hypertensive heart disease with heart failure; I50.9 Heart failure, unspecified; E86.0 Dehydration; J44.9 Chronic obstructive pulmonary disease, unspecified; F41.9 Anxiety disorder, unspecified; J45.909 Unspecified asthma, uncomplicated; R07.9 Chest pain, unspecified; Z83.3 Family history of diabetes mellitus; Z87.891 Personal history of nicotine dependence; Z88.7 Allergy status to serum and vaccine; Z88.8 Allergy status to other drugs, medicaments and biological substances; E87.1 Hypo-osmolality and hyponatremia
CPT/HCPCS: 36415-UA; 71010-TC; 80048-TC; 80053-TC; 80329-TC; 82948-90; 83036-90; 84443-TC; 84484-TC; 85007-TC; 85025-TC; 85027-TC; 93005; J1815; J7500; Z7610

== ENCOUNTER 2016-08-18 12:48 | Emergency (ER) | payer MEDICAID ==
--- NOTE | 2016-08-18 13:31 | ED Physician Chart ---
Chief Complaint/HPI - Patient Information Date Seen:: 08/18/16 Time Seen:: 13:27 Chief Complaint:: Puncture wound History of Present Illness:: onset x 4 days ago of a left foot puncture wound after putting on a shoe that had a staple in it; pt states the staple remained in the shoe after taking the shoe out; pt developed minimal bleeding which resolved; pt denies foot pain but her last tetanus shot is > 5 years Allergies:: Allergies Allergy/AdvReac Type Severity Reaction Status Date / Time flu vaccine ts Allergy Verified 08/07/16 00:21 (36mos+) [From Fluarix] meperidine HCl [From Demerol] Allergy Verified 08/07/16 00:21 Vitals:: Vital Signs - 8 hr 08/18/16 13:11 Temp 98 F HR 77 RR 16 BP 175/81 O2 Sat % 100 Historian:: Patient Review:: Nurse's Note Reviewed Review of Systems - Review of Systems General/Constitutional: No fever, No chills, No weight loss, No weakness, No diaphoresis, No edema, No loss of appetite Skin: No skin lesions, No rash, No bruising Head: No headache, No light-headedness Eyes: No loss of vision, No pain, No diplopia ENT: No earache, No nasal drainage, No sore throat, No tinnitus Neck: No neck pain, No swelling, No thyromegaly, No stiffness, No mass noted Cardio Vascular: No chest pain, No palpitations, No PND, No orthopnea, No edema Pulmonary: No SOB, No cough, No sputum, No wheezing GI: No nausea, No vomiting, No diarrhea, No pain, No melena, No hematochezia, No constipation, No hematemesis G/U: No dysuria, No frequency, No hematuria Musculoskeletal: No bone or joint pain, No back pain, No muscle pain Endocrine: No polyuria, No polydipsia Psychiatric: No prior psych history, No depression, No anxiety, No suicidal ideation Hematopoietic: No bruising, No lymphadenopathy Allergic/Immuno: No urticaria, No angioedema Neurological: No syncope, No focal symptoms, No weakness, No paresthesia, No headache, No seizure, No dizziness, No confusion, No vertigo Past Medical History - Past Medical History Past Medical History: HTN, DM, Dyslipidemia Family History: Diabetes Melitus, HTN Social History: Non Smoker, No Alcohol, No Drug Use Surgical History: None Psychiatricy History: None Medication: Reviewed Family Medical History - Family Member Mother History Unknown: Yes Ethnicity: Non- Living Status: Hx Family Hypertension: Yes Hx Family Diabetes: Yes Hx Family COPD: Yes Physical Exam - Physical Examination General/Constitutional: Awake, Well-developed, well-nourished, Alert, No distress, GCS 15, Non-toxic appearing, Ambulatory Head: Atraumatic Eyes: Lids, conjuctiva normal, PERRL, EOMI Skin: Nl inspection, No rash, No skin lesions, No ecchymosis, Well hydrated, No lymphadenopathy Other Skin comments:: Left Foot: small Puncture Wound at plantar middle metatarsal region; no FBs; no cellulitis; good motor, tendon, and sensory functions; good NV functions ENMT: External ears, nose nl, Nasal exam nl, Lips, teeth, gums nl Neck: Nontender, Full ROM w/o pain, No JVD, No nuchal rigidity, No bruit, No mass, No stridor Respiratory: Nl effort/Exclusion, Clear to Auscultation, No Wheeze/Rhonchi/Rales Cardio Vascular: RRR, No murmur, gallop, rubs, NL S1 S2 GI: No tenderness/rebounding/guarding, No organomegaly, No hernia, Normal BS's, Nondistended, No mass/bruits, No McBurney tenderness : No CVA tenderness Extremities: No tenderness or effusion, Full ROM, normal strength in all extremities, No edema, Normal digits & nails Neuro/Psych: Alert/oriented, DTR's symmetric, Normal sensory exam, Normal motor strength, Judgement/insight normal, Mood normal, Normal gait, No focal deficits Misc: normal gait, Normal back, No paraspinal tenderness ED Septic Shock - . Is Septic Shock (SBP<90, OR Lactate>4 mmol\L) present?: No - <6hrs of presentation: Vital Signs: Vital Signs - 8 hr 08/18/16 13:11 Temp 98 F HR 77 RR 16 BP 175/81 O2 Sat % 100 Assessment of Lungs: Lung CTA bilateral, Ventilator, Decreased BS, Rhonchi, No Rhonchi, Rales, No Rales, Wheezing, No Wheezing, Stridor, No Stridor, Other, Documented in PE Assessment of Heart: RRR, Thrill, No thrill, Gallops, No Gallops, S3, S4, Rub, No Rub, Murmur, No Murmur, Other, Documented in PE Capillary refill evaluation: Capillary refill < 2 secs, Capillary refill > 2 secs, Other, Documented in PE Skin Exam: Warm, Dry, Good Turgur, Poor Turgor, Pallor, No Pallor, Diaphoretic, No Diaphoresis, Mottled, No Mottling, Cyanotic, Edema, No Edema, Erythema, No Erythema, Other, Documented in PE Reassessment (Disposition) - Reassessment Reassessment Condition:: Improved - Diagnosis Diagnosis:: Left Foot Puncture Wound - Aftercare/Follow up Instructions Aftercare/Follow-Up Instructions:: Counseled pt regarding lab results/diagnosis & need follow up, Refer to Discharge Instructions, Counseled pt & family regarding lab results/diagnosis & need follow up Medication Prescribed:: Rx: Keflex 500mg po qid x 10 days; Neosporin Ointment bid and dressing x 14 days - Patient Disposition Discharge/Transfer:: Home (ACIs given for all Dx; RTER prn if concerned; refer to Medical Records Assistant/Vascular Surgeon IVA; F/U with PMD in one day or prn)
== END 2016-08-18 13:45 | disposition home or self-care (01) ==
LOC: ER 12:48
DX: S91.332A Puncture wound without foreign body, left foot, initial encounter (principal); I10 Essential (primary) hypertension; E11.9 Type 2 diabetes mellitus without complications; E78.5 Hyperlipidemia, unspecified; Z88.6 Allergy status to analgesic agent; X58.XXXA Exposure to other specified factors, initial encounter; Y93.89 Activity, other specified; Y92.89 Other specified places as the place of occurrence of the external cause; Y99.8 Other external cause status
CPT/HCPCS: Z7502

== ENCOUNTER 2017-03-23 15:37 | Inpatient (IN) | payer MEDICARE, MEDICAID ==
--- NOTE | 2017-03-23 16:06 | ED Physician Chart ---
ED Chief Complaint/HPI - Patient Information Date Seen:: 03/23/17 Time Seen:: 15:50 Chief Complaint:: Arm Pain History of Present Illness:: onset x one day of intermittent RUE, right Chest Pain with Dyspnea, paresthesias and right eye redness; pt denies H/As, visual changes, eye pain, S/ T, neck pain, ,cough, Abd. Pain, Flank pain, A/N/V/D/C, fever, chills, or urinary s/s; pt's last tetanus shot: < 5 years; UTD; pt is post-menopausal x 16 years; pt admits to weakness and dizziness x one day Allergies:: Allergies Allergy/AdvReac Type Severity Reaction Status Date / Time flu vaccine ts Allergy Verified 08/07/16 00:21 2012-(36mos+) [From Fluarix] meperidine HCl [From Demerol] Allergy Verified 08/07/16 00:21 Historian:: Patient, Family Member Review:: Nurse's Note Reviewed ED Review of Systems - Review of Systems General/Constitutional: No fever, No chills, No weight loss, No weakness, No diaphoresis, No edema, No loss of appetite Skin: Skin lesions, Rash, No bruising Head: No headache, No light-headedness Eyes: No loss of vision, No pain, No diplopia, Other (Eye redness) ENT: No earache, No nasal drainage, No sore throat, No tinnitus Neck: No neck pain, No swelling, No thyromegaly, No stiffness, No mass noted Cardio Vascular: Chest pain, Palpitations, No PND, No orthopnea, No edema Pulmonary: No SOB, No cough, No sputum, No wheezing GI: No nausea, No vomiting, No diarrhea, No pain, No melena, No hematochezia, No constipation, No hematemesis G/U: No dysuria, No frequency, No hematuria Musculoskeletal: Bone or joint pain, No back pain, Muscle pain Endocrine: Polyuria, Polydipsia Psychiatric: No prior psych history, No depression, No anxiety, No suicidal ideation, No homicidal ideation, No auditory hallucination, No visual hallucination Hematopoietic: No bruising, No lymphadenopathy Allergic/Immuno: No urticaria, No angioedema Neurological: No syncope, No focal symptoms, Weakness, No paresthesia, No headache, No seizure, Dizziness, No confusion, Vertigo ED Past Medical History - Past Medical History Obtainable: Yes Past Medical History: HTN, DM, Other (Behcet's Syndrome) Family History: Diabetes Melitus, HTN Social History: Non Smoker, No Alcohol, No Drug Use, Single Surgical History: None Psychiatricy History: None Medication: Reviewed Family Medical History - Family Member Mother History Unknown: Yes Ethnicity: Non- Living Status: Hx Family Hypertension: Yes Hx Family Diabetes: Yes Hx Family COPD: Yes ED Physical Exam - Physical Examination General/Constitutional: Awake, Well-developed, well-nourished, Alert, No distress, GCS 15, Non-toxic appearing, Ambulatory Head: Atraumatic Eyes: Lids, conjuctiva normal, PERRL, EOMI Other Eyes comments:: Right Conjunctival Injection; no FBs Skin: Nl inspection, No rash, No skin lesions, No ecchymosis, Well hydrated, No lymphadenopathy ENMT: External ears, nose nl, Nasal exam nl, Lips, teeth, gums nl Neck: Nontender, Full ROM w/o pain, No JVD, No nuchal rigidity, No bruit, No mass, No stridor Respiratory: Nl effort/Exclusion Other Respiratory comments:: Lungs: + Rales Cardio Vascular: RRR, No murmur, gallop, rubs, NL S1 S2 GI: No tenderness/rebounding/guarding, No organomegaly, No hernia, Normal BS's, Nondistended, No mass/bruits, No McBurney tenderness : No CVA tenderness Extremities: No tenderness or effusion, Full ROM, normal strength in all extremities, No edema, Normal digits & nails Neuro/Psych: Alert/oriented, DTR's symmetric, Normal sensory exam, Normal motor strength, Judgement/insight normal, Mood normal, Normal gait, No focal deficits Misc: Normal back, No paraspinal tenderness ED Labs/Radiology/EKG Results - Lab Results Comments:: BNP: 203 - Radiology Results Comments:: CXR: +CM; CHF - EKG Interpretations EKG Time:: 16:13 Rate & Rhythm: 59; SB Comments:: non-specific st-t changes ED Septic Shock - . Is Septic Shock (SBP<90, OR Lactate>4 mmol\L) present?: No ED Reassessment (Disposition) - Reassessment Reassessment Condition:: Improved - Diagnosis Diagnosis:: Dx: Right Conjunctivitis; Arm Pain; Chest Pain; Dyspnea; CHF; HTN - Aftercare/Follow up Instructions Aftercare/Follow-Up Instructions:: Counseled pt regarding lab results/diagnosis & need follow up, Counseled pt & family regarding lab results/diagnosis & need follow up - Patient Disposition Discharge/Transfer:: Acute Care w/in this hosp Accepting Physician:: Dr. Roth Time Called:: 1844 Time Responded:: 18:45 Admitted to:: Telemetry Spoke to:: Dr. Roth Admitting Medical Physician:: Dr. Roth Condition at Disposition:: Stable, Improved
[2017-03-23] MEDS ORDERED: Sodium Chloride 0.9% 1,000 ML IV ONE (16:08)
[2017-03-23 16:29] LABS: % EOSINOPHILS 1.3 % (0.0-5.0); % LYMPHOCYTES 31.7 % (20.0-50.0); % MONOCYTES 7.1 % (2.0-10.0); % NEUTROPHILS 59.9 % (40.0-80.0); HEMATOCRIT 39.1 % (41.0-60); MEAN CELL VOLUME 88.1 fl (81-100); MEAN CORPUSCULAR HEMOGLOBIN 29.4 pg (27.0-31.0); MEAN CORPUSCULAR HGB CONC 33.4 pg (28.0-36.0); MEAN PLATELET VOLUME 8.8 fl; NEUTROPHILE ABSOLUTE 2.9 Th/cmm (1.8-8.0); PLATELET COUNT 240 Th/cmm (150-400); RED BLOOD COUNT 4.44 Mil/cmm (3.80-5.20); RED CELL DISTRIBUTION WIDTH 14.6 % (11.5-20.0)
[2017-03-23 16:30] LABS: WHITE BLOOD COUNT 4.8 Th/cmm (4.8-10.8)
[2017-03-23 16:45] LABS: INR 0.95 (0.5-1.4); PROTHROMBIN TIME (TEST) 9.9 SECONDS (9.5-11.5)
[2017-03-23 16:47] LABS: ALB/GLOB RATIO 1.2 (1.0-1.8); ALKALINE PHOSPHATASE 87 U/L (34-104); AMYLASE SERUM 75 U/L (29-103); ANION GAP 7.5 (7.0-16.0); BILIRUBIN,TOTAL 0.4 mg/dL (0.3-1.0); BUN - UREA NITROGEN 18 mg/dL (7-25); BUN/CREATININE RATIO 16.4; CALCIUM SERUM 9.5 mg/dL (8.6-10.3); CARBON DIOXIDE 30.6 mEq/L (21.0-31.0); CHLORIDE 104 mEq/L (98-107); CHOLESTEROL 193 mg/dL (<200); CREATININE - SERUM 1.1 mg/dL (0.6-1.2); GLUCOSE 84 mg/dL (70-105); LIPASE 10 U/L (11-82); POTASSIUM SERUM 4.1 mEq/L (3.5-5.1); SGOT 20 U/L (13-39); SGPT/ALT 12 U/L (7-52); SODIUM SERUM 138 mEq/L (136-145); TRIGLYCERIDES 150 mg/dL (<150)
--- NOTE | 2017-03-23 20:53 | History & Physical ---
ADMIT DATE: 03/23/2017 CHIEF COMPLAINT: Chest pain for a few days' duration. HISTORY OF PRESENT ILLNESS: The patient is a 66-year-old female with long history of hypertension, mild CHF, rheumatoid arthritis, gastroesophageal reflux, presented to the Emergency Room complaining of chest pain for 3 days' duration. Also, she has conjunctivitis on the right eye. No fever, no chills, and no nausea and vomiting. The patient was admitted to the hospital for more workup. PAST MEDICAL HISTORY: Significant for hypertension, CHF, rheumatoid arthritis, and gastroesophageal reflux. PAST SURGICAL HISTORY: Multiple surgeries for removal of nodules. ALLERGIES: None. MEDICATIONS: Follow admission reconciliation. SOCIAL HISTORY: Ex-smoker, no alcohol or drugs. FAMILY HISTORY: Noncontributory. REVIEW OF SYSTEMS: IMMUNO SYSTEM: No history of chronic renal disorder. CARDIOVASCULAR SYSTEM: She has history of hypertension. ENDOCRINE SYSTEM: No diabetes or thyroid problem. GASTROINTESTINAL SYSTEM: No upper or lower GI bleeding. She has gastroesophageal reflux. GENITOURINARY: No dysuria or hematuria. HEMATOLOGIC SYSTEM: No bleeding tendencies. RESPIRATORY SYSTEM: No asthma. PHYSICAL EXAMINATION: GENERAL: She is awake, alert, and oriented, not in pain or distress. VITAL SIGNS: Temperature is 97.4, heart rate 60, and blood pressure 143/73. HEENT: Normocephalic. Pupils are reactive to light and accommodation. Sclerae clear. NECK: Supple. Negative for lymphadenopathy, JVD, or bruit. CHEST: Bilaterally normal. No rhonchi or wheezing. HEART: S1, S2 normal. No murmur or gallop. ABDOMEN: Soft. Bowel sounds positive. EXTREMITIES: No edema. NEUROLOGIC: Awake, alert, and oriented. No focal motor or sensory deficits. Cranial nerves 2-12 intact. LABORATORY DATA: White blood cells 4.8, hemoglobin 13, hematocrit 39.1, and platelet is 240,000. INR 0.95. Sodium 138, potassium 4.1, BUN 18, and creatinine 0.1. Troponin less than 0.01. BNP 203. Lipase 10. ASSESSMENT: 1. Chest pain. 2. Hypertension. 3. Mild congestive heart failure. 4. Rheumatoid arthritis. 5. Gastroesophageal reflux. PLAN: The patient was admitted to the hospital under Dr. Roth's service. Dr. Raoul Bishop, data processing consultant, on the case. Nitroglycerin sublingual p.r.n. for chest pain. Aspirin 81 mg once a day. The patient will resume her medication. Echocardiogram ordered. Lovenox 40 subcutaneous daily. The patient is a Full Code. JOB# [id number]
[2017-03-23] MEDS: Hydrocodone/APAP 10 mg/325 mg Tab PO PRN (21:04)
--- NOTE | 2017-03-24 07:46 | Diagnostic Imaging Report ---
Exam: Portable exam of the chest. HISTORY: Chest pain Findings: Portable examination of the chest at 1635 hours reviewed. The study compared to previous of 08/07/2016. The study demonstrates cardiomegaly. The aortic arch calcified. No acute pulmonic infiltrates or effusions are noted. Bony thorax intact. IMPRESSION: no acute disease.
--- NOTE | 2017-03-24 07:51 | Diagnostic Imaging Report ---
CT scan of the brain without contrast History: Dizziness Total DLP equals 622 CTDI equals 35.1 Axial sections were obtained from the base of the skull to the vertex. There is a normal ventricular system size. No focal parenchymal lesions are seen. No evidence of any mass effect or shift of midline structures. No extra-axial masses or abnormal fluid collections. Impression: Negative examination. There is evidence for mild white matter disease. If clinically indicated MRI examination might be helpful.
[2017-03-24] MEDS: Pantoprazole 40 mg EC Tab PO SCH (09:20)
[2017-03-24] MEDS: Aspirin 81mg Chewable Tab PO SCH (09:21)
[2017-03-24] MEDS: Enoxaparin 40 mg/0.4 mL 0.4mL Syr SUBQ SCH (09:22)
[2017-03-24] MEDS: Hydroxychloroquine 200 mg Tab PO SCH ×2 (09:22→17:41)
[2017-03-24] MEDS: Dexamethasone/Tobramycin Ophth Susp 2.5 mL Bottle RIGHT EYE SCH ×2 (09:27→17:42)
[2017-03-24] MEDS: Hydrocodone/APAP 10 mg/325 mg Tab PO PRN ×2 (10:59→19:40)
[2017-03-24] MEDS ORDERED: VTE Chemical Prophylaxis Screen/Admission MC PRN (14:13)
--- NOTE | 2017-03-24 19:55 | Internal Medicine Prog Note ---
Internal Medicine Subjective - Subjective Service Date: 03/24/17 Patient seen and examined:: without staff (SHE FEELS WELL,NO CHEST PAIN.) Patient is:: awake, verbal, in bed, talking Per staff patient has:: no adverse event Internal Medicine Objective - Results Result Diagrams: 03/23/17 16:20 03/23/17 16:20 Recent Labs: Laboratory Last Values WBC 4.8 Th/cmm (4.8-10.8) D 03/23/17 16:20 RBC 4.44 Mil/cmm (3.80-5.20) 03/23/17 16:20 Hgb 13.0 gm/dL (12-16) 03/23/17 16:20 Hct 39.1 % (41.0-60) L 03/23/17 16:20 MCV 88.1 fl (81-100) 03/23/17 16:20 MCH 29.4 pg (27.0-31.0) 03/23/17 16:20 MCHC Differential 33.4 pg (28.0-36.0) 03/23/17 16:20 RDW 14.6 % (11.5-20.0) 03/23/17 16:20 Plt Count 240 Th/cmm (150-400) 03/23/17 16:20 MPV 8.8 fl 03/23/17 16:20 Neutrophils % 59.9 % (40.0-80.0) 03/23/17 16:20 Lymphocytes % 31.7 % (20.0-50.0) 03/23/17 16:20 Monocytes % 7.1 % (2.0-10.0) 03/23/17 16:20 Eosinophils % 1.3 % (0.0-5.0) 03/23/17 16:20 Basophils % 0.0 % (0.0-2.0) 03/23/17 16:20 PT 9.9 SECONDS (9.5-11.5) 03/23/17 16:20 INR 0.95 (0.5-1.4) 03/23/17 16:20 Sodium 138 mEq/L (136-145) 03/23/17 16:20 Potassium 4.1 mEq/L (3.5-5.1) 03/23/17 16:20 Chloride 104 mEq/L (98-107) 03/23/17 16:20 Carbon Dioxide 30.6 mEq/L (21.0-31.0) 03/23/17 16:20 Anion Gap 7.5 (7.0-16.0) 03/23/17 16:20 BUN 18 mg/dL (7-25) 03/23/17 16:20 Creatinine 1.1 mg/dL (0.6-1.2) 03/23/17 16:20 Est GFR ( Amer) > 60.0 ml/min (>90) 03/23/17 16:20 Est GFR (Non-Af Amer) 53.0 ml/min 03/23/17 16:20 BUN/Creatinine Ratio 16.4 03/23/17 16:20 Glucose 84 mg/dL (70-105) 03/23/17 16:20 Calcium 9.5 mg/dL (8.6-10.3) 03/23/17 16:20 Total Bilirubin 0.4 mg/dL (0.3-1.0) 03/23/17 16:20 AST 20 U/L (13-39) 03/23/17 16:20 ALT 12 U/L (7-52) 03/23/17 16:20 Alkaline Phosphatase 87 U/L (34-104) 03/23/17 16:20 Creatine Kinase 155 U/L (30-223) 03/23/17 16:20 Troponin I < 0.01 ng/mL (0.01-0.05) L 03/23/17 16:20 B-Natriuretic Peptide 203.0 pg/mL (5.0-100.0) H 03/23/17 16:20 Total Protein 7.4 gm/dL (6.0-8.3) 03/23/17 16:20 Albumin 4.1 gm/dL (3.7-5.3) 03/23/17 16:20 Globulin 3.3 gm/dL 03/23/17 16:20 Albumin/Globulin Ratio 1.2 (1.0-1.8) 03/23/17 16:20 Triglycerides 150 mg/dL (<150) 03/23/17 16:20 Cholesterol 193 mg/dL (<200) 03/23/17 16:20 LDL Cholesterol Direct 131 mg/dL (75-193) 03/23/17 16:20 HDL Cholesterol 48 mg/dL (23-92) 03/23/17 16:20 Amylase 75 U/L (29-103) 03/23/17 16:20 Lipase 10 U/L (11-82) L 03/23/17 16:20 - Physical Exam Vitals and I&O: Vital Signs Temp 98.2 F 03/24/17 16:09 Pulse 52 03/24/17 16:09 Resp 17 03/24/17 16:09 BP 127/59 03/24/17 19:39 Pulse Ox 99 03/24/17 16:09 Intake & Output 03/24/17 03/24/17 03/25/17 06:59 18:59 06:59 Intake Total 300 Balance 300 Weight (lbs) 86.693 kg 86.636 kg Intake: Oral 300 Other: # Voids 2 # Bowel Movements 0 Active Medications: Current Medications Acetaminophen/Hydrocodone Bitart (Boissevain 10 Mg/325 Mg) 1 tab PO TID PRN PRN Reason: Pain (Mild) Stop: 05/22/17 19:48 Last Admin: 03/24/17 19:40 Dose: 1 tab Aspirin (Aspirin Chewable) 81 mg PO DAILY [facility] Stop: 05/23/17 08:59 Last Admin: 03/24/17 09:21 Dose: 81 mg Azathioprine (Imuran) 50 mg PO BID TOMEKA PRN Reason: Protocol Stop: 05/23/17 08:59 Last Admin: 03/24/17 17:41 Dose: 50 mg Enoxaparin Sodium (Lovenox) 40 mg SUBQ DAILY [facility] Stop: 05/23/17 08:59 Last Admin: 03/24/17 09:22 Dose: 40 mg Furosemide (Lasix) 40 mg PO Q12H [facility]OMEKA Stop: 05/23/17 06:59 Last Admin: 03/24/17 19:39 Dose: 40 mg Hydroxychloroquine Sulfate (Plaquenil) 200 mg PO BID TOMEKA Stop: 05/23/17 08:59 Last Admin: 03/24/17 17:41 Dose: 200 mg Lisinopril (Zestril) 40 mg PO DAILY [facility]OME[facility] Stop: 05/23/17 08:59 Last Admin: 03/24/17 09:20 Dose: 40 mg Lorazepam (Ativan) 1 mg PO Q12H TOMEKA PRN Reason: Protocol Stop: 05/22/17 19:59 Last Admin: 03/24/17 19:40 Dose: 1 mg Miscellaneous (Vte Chemical Prophylaxis Screen/ Admission) 1 ea [facility] PRN PRN PRN Reason: PROTOCOL Stop: 05/23/17 14:12 Nitroglycerin (Nitrostat) 0.4 mg SL Q5MIN PRN PRN Reason: Chest Pain Stop: 05/22/17 19:14 Pantoprazole Sodium (Protonix) 40 mg PO DAILY TOMEKA Stop: 05/23/17 08:59 Last Admin: 03/24/17 09:20 Dose: 40 mg Pneumococcal Polyvalent Vaccine (Pneumovax) 0.5 ml IM .ONCE ONE Stop: 03/26/17 09:01 Tobramycin/Dexamethasone (Tobradex 0.1%-0.3% Ophth Susp 2.5ml) 1 drop RIGHT EYE BID TOMEKA Stop: 05/23/17 08:59 Last Admin: 03/24/17 17:42 Dose: 1 drop Neck: Supple, No JVD, No thyromegaly, +2 carotid pulse wo bruit, No LAD Lungs: CTAB Cardiovascular: Normal S1, Normal S2, without murmur Abdomen: non-tender, non-distended Extremities: clear Neurological: no change - Procedures Procedures: Procedures Procedure Code Date INJECT/INFUSE NEC 99.29 11/22/13 Internal Medicine Assmt/Plan - Assessment Assessment: 1.CHEST PAIN. 2.HTN. 3.DJD. 4.RA - Plan Plan: CONTINUE ON CURRENT MEDICATION AND DIET.
--- NOTE | 2017-03-24 21:14 | Consultation ---
DATE OF CONSULTATION: 03/24/[address] Roth. HISTORY AND PHYSICAL: This is a 66-year-old -[place] female patient who has poor compliance in the diet, fluid restriction, came in with shortness of breath. The patient has slightly elevated BNP level and cardiac consult is requested. PAST MEDICAL HISTORY: Hypertension, diabetes mellitus type 2, congestive heart failure, rheumatoid arthritis, GERD, and osteoporosis. FAMILY HISTORY: Unremarkable. SOCIAL HISTORY: No history of smoking or alcohol abuse. ALLERGIES: No known allergies. PHYSICAL EXAMINATION: VITAL SIGNS: Blood pressure 130/80, pulse 50, respirations 20, and respirations 20. HEAD: Normocephalic. No lumps or bumps. EYES: Pupils are equal and reactive to light. Fundi show AV nicking, sclerae white, and conjunctivae pink. NECK: Carotid 2+. Normal upstroke. JVD 10 cm above the sternal angle. Thyroid not palpable. Lymph nodes not palpable. CHEST: Shows increased AP diameter. No kyphosis or scoliosis. LUNGS: Bilateral rales. Decreased breath sounds in both the bases. HEART: PMI at sixth intercostal space with lateral to midclavicular line. S1, S2. No S3, S4. Systolic murmur, grade 2/6, lower left sternal border without radiation. ABDOMEN: Soft. Liver and spleen not palpable. No organomegaly. Bowel sounds are active. NEUROLOGIC: Unremarkable. EXTREMITIES: Peripheral pulses 2+. No pedal edema. CLINICAL IMPRESSION: Congestive heart failure, diastolic dysfunction, diabetes mellitus type 2, hypertension, gastroesophageal reflux disease, and rheumatoid arthritis. PLAN: Admit the patient. We will do echocardiogram, diuretics, and monitor the patient. JOB# [id number]
[2017-03-25] MEDS: Enoxaparin 40 mg/0.4 mL 0.4mL Syr SUBQ SCH (09:10)
[2017-03-25] MEDS: Aspirin 81mg Chewable Tab PO SCH (09:11)
[2017-03-25] MEDS: Pantoprazole 40 mg EC Tab PO SCH (09:11)
[2017-03-25] MEDS: Hydroxychloroquine 200 mg Tab PO SCH (09:14)
[2017-03-25] MEDS: Dexamethasone/Tobramycin Ophth Susp 2.5 mL Bottle RIGHT EYE SCH (09:16)
[2017-03-25] MEDS: Hydrocodone/APAP 10 mg/325 mg Tab PO PRN (09:32)
--- NOTE | 2017-03-25 14:34 | Cardiology ---
03/25/[address] Roth M-MODE ECHOCARDIOGRAM: Mitral valve, anterior mitral valve shows normal excursion, EF velocity. Posterior leaflet of mitral valve shows normal excursion. Left ventricular posterior wall shows increased thickness, normal excursion. Interventricular septum shows increased thickness, normal excursion, hypertrophy of the left ventricle, ejection fraction 60%. Left atrium normal. Aortic root shows normal dimension, normal excursion of aortic leaflets. CONCLUSION: Hypertrophy of the left ventricle, ejection fraction 60%. 2D ECHO: Long axis view showed normal sized left ventricle with hypertrophy of the left ventricle. Left atrium normal. Aortic root shows normal dimension, normal excursion of aortic leaflets. Short axis view of mitral valve normal. Short axis of aortic valve normal. Apical four chamber view showed normal sized left ventricle with hypertrophy of the left ventricle. Left atrium normal. Right ventricular cavity, right atrium normal. No pericardial effusion. CONCLUSION: Hypertrophy of the left ventricle, ejection fraction 60%. Doppler study shows prominent A wave consistent with poor compliance of left ventricle. Trace tricuspid regurgitation. JOB# [id number]
[2017-03-26] MEDS ORDERED: Pneumococcal Vaccine 0.5 mL Vial IM ONE (09:00)
== END 2017-03-25 13:45 | disposition home or self-care (01) | DRG 205 ==
LOC: ER 15:37 → TELE 18:50
PROVIDERS: ADMIT Family Medicine; ATTEND Family Medicine
DX: M94.0 Chondrocostal junction syndrome [Tietze] (principal); I50.31 Acute diastolic (congestive) heart failure; M35.2 Behcet's disease; I11.0 Hypertensive heart disease with heart failure; K21.9 Gastro-esophageal reflux disease without esophagitis; M06.9 Rheumatoid arthritis, unspecified; E11.9 Type 2 diabetes mellitus without complications; H10.9 Unspecified conjunctivitis; M81.0 Age-related osteoporosis without current pathological fracture; Z88.7 Allergy status to serum and vaccine; Z88.8 Allergy status to other drugs, medicaments and biological substances; Z83.3 Family history of diabetes mellitus; Z82.49 Family history of ischemic heart disease and other diseases of the circulatory system
CPT/HCPCS: 36415-UA; 70450-TC; 71010-TC; 80053-TC; 80061-TC; 82150-TC; 82550-TC; 83690-TC; 83880-TC; 84484-TC; 85025-TC; 85610-TC; 93005; 96374; J1650; J7500; Z7610

== ENCOUNTER 2017-09-21 23:56 | Inpatient (IN) | payer MEDICARE, MEDICAID ==
--- NOTE | 2017-09-22 00:34 | ED Physician Chart ---
ED Chief Complaint/HPI - Patient Information Date Seen:: 09/22/17 Time Seen:: 00:25 Chief Complaint:: general History of Present Illness:: location: general quality: syncope, dizziness severity: mild duration: less than one hour context: while watching a movie seated in her recliner chair in her living room at home, pt says she passed out twice. afterward, felt a little dizzy. usual BP is 125/80. says her BP was 180/80. no trauma as she was reclining in her recliner chair while watching a movie. at home alone. no vomiting, no diarrhea. pt clarifies that she did not fall asleep while watching the movie, says she passed out while watching the movie. no rash. no loss of balance, no other neuro complaint. mod factors: none assoc s/s: none hx from pt. Allergies:: Allergies Allergy/AdvReac Type Severity Reaction Status Date / Time flu vaccine ts Allergy Verified 09/22/17 00:21 2012-(36mos+) [From Fluarix] meperidine HCl [From Demerol] Allergy Verified 09/22/17 00:21 Vitals:: Vital Signs - 8 hr 09/22/17 00:00 Temp 97.5 F HR 55 RR 18 BP 185/88 O2 Sat % 99 Historian:: Patient Review:: Nurse's Note Reviewed ED Review of Systems - Review of Systems General/Constitutional: No fever, No chills, No weight loss, No weakness, No diaphoresis, No edema, No loss of appetite Skin: No skin lesions, No rash, No bruising Head: No headache, Light headed Eyes: No loss of vision, No pain, No diplopia ENT: No earache, No nasal drainage, No sore throat, No tinnitus Neck: No neck pain, No swelling, No thyromegaly, No stiffness, No mass noted Cardio Vascular: No chest pain, No palpitations, No PND, No orthopnea, No edema Pulmonary: No SOB, No cough, No sputum, No wheezing GI: No nausea, No vomiting, No diarrhea, No pain, No melena, No hematochezia, No constipation, No hematemesis G/U: No dysuria, No frequency, No hematuria Musculoskeletal: No bone or joint pain, No back pain, No muscle pain Endocrine: No polyuria, No polydipsia Psychiatric: No prior psych history, No depression, No anxiety, No suicidal ideation Hematopoietic: No bruising, No lymphadenopathy Allergic/Immuno: No urticaria, No angioedema Neurological: No syncope, No focal symptoms, No weakness, No paresthesia, No headache, No seizure, No dizziness, No confusion, No vertigo ED Past Medical History - Past Medical History Past Medical History: HTN, Asthma/COPD, PUD/GERD, Other (rheumatoid arthritis) Social History: Non Smoker, No Alcohol, No Drug Use, Single, Lives Alone Surgical History: HIP Psychiatricy History: None Medication: Reviewed Family Medical History - Family Member Mother History Unknown: Yes Ethnicity: Non- Living Status: Hx Family Hypertension: Yes Hx Family Diabetes: Yes Hx Family COPD: Yes ED Physical Exam - Physical Examination General/Constitutional: Awake, Well-developed, well-nourished, Alert, No distress, GCS 15, Non-toxic appearing, Ambulatory Head: Atraumatic Eyes: Lids, conjuctiva normal, PERRL, EOMI Skin: Nl inspection, No skin lesions, Well hydrated, No lymphadenopathy ENMT: External ears, nose nl, Nasal exam nl, Lips, teeth, gums nl, Oropharynx nl Neck: Nontender, No nuchal rigidity, No stridor Respiratory: Nl effort/Exclusion, Clear to Auscultation, No Wheeze/Rhonchi/Rales Cardio Vascular: RRR, No murmur, gallop, rubs, NL S1 S2 GI: No tenderness/rebounding/guarding, Normal BS's, Nondistended : No CVA tenderness Extremities: No tenderness or effusion, No edema Neuro/Psych: Alert/oriented, Normal sensory exam, Normal motor strength, Judgement/insight normal, Mood normal, Normal gait, No focal deficits Misc: Normal back, No paraspinal tenderness ED Labs/Radiology/EKG Results - Lab Results Results: Laboratory Tests 09/22/17 09/22/17 09/22/17 00:45 00:50 00:50 WBC 5.4 RBC 4.66 Hgb 13.5 Hct 41.6 MCV 89.2 MCH 29.0 MCHC Differential 32.5 RDW 14.2 Plt Count 274 MPV 8.7 Neutrophils % 55.7 Lymphocytes % 33.5 Monocytes % 6.3 Eosinophils % 1.8 Basophils % 2.7 H Sodium 140 Potassium 4.2 Chloride 104 Carbon Dioxide 26.2 Anion Gap 14.0 BUN 18 Creatinine 1.0 Est GFR ( Amer) > 60.0 Est GFR (Non-Af Amer) 59.1 BUN/Creatinine Ratio 18.0 Glucose 99 Calcium 9.3 Total Bilirubin 0.2 L AST 18 ALT 12 Alkaline Phosphatase 86 Troponin I B-Natriuretic Peptide Total Protein 7.6 Albumin 4.1 Globulin 3.5 Albumin/Globulin Ratio 1.2 Urine Source CLEAN C Urine Color YELLOW Urine Clarity CLEAR Urine pH 6.0 Ur Specific [place] >= 1.030 Urine Protein NEGATIVE Urine Glucose (UA) NEGATIVE Urine Ketones NEGATIVE Urine Blood NEGATIVE Urine Nitrate NEGATIVE Urine Bilirubin NEGATIVE Urine Urobilinogen 0.2 Ur Leukocyte Esterase TRACE H Urine RBC 0-2 Urine WBC 0-2 Ur Epithelial Cells OCCASIONAL 09/22/17 09/22/17 00:50 00:50 WBC RBC Hgb Hct MCV MCH MCHC Differential RDW Plt Count MPV Neutrophils % Lymphocytes % Monocytes % Eosinophils % Basophils % Sodium Potassium Chloride Carbon Dioxide Anion Gap BUN Creatinine Est GFR ( Amer) Est GFR (Non-Af Amer) BUN/Creatinine Ratio Glucose Calcium Total Bilirubin AST ALT Alkaline Phosphatase Troponin I < 0.01 L B-Natriuretic Peptide 61.3 Total Protein Albumin Globulin Albumin/Globulin Ratio Urine Source Urine Color Urine Clarity Urine pH Ur Specific [place] Urine Protein Urine Glucose (UA) Urine Ketones Urine Blood Urine Nitrate Urine Bilirubin Urine Urobilinogen Ur Leukocyte Esterase Urine RBC Urine WBC Ur Epithelial Cells - Radiology Results Results: head CT no acute bleed no acute intracranial process RAD READ - EKG Interpretations Comments:: EKG NSR [address] elevation no acute ST depression normal axis normal [place] interval pt with no chest pain and no SOB otherwise normal EKG ER READ ED Assessment - Assessment General Assessment: pt stable while in ER. clear speech CN 2-12 equal and bilaterally intact says dizziness dissipated shortly after arriving in ER. no chest pain. moves upper and lower limbs spontaneously and to command. overall neurologically intact. ED Septic Shock - . Is Septic Shock (SBP<90, OR Lactate>4 mmol\L) present?: No - <6hrs of presentation: Vital Signs: Vital Signs - 8 hr 09/22/17 00:00 Temp 97.5 F HR 55 RR 18 BP 185/88 O2 Sat % 99 Assessment of Lungs: Lung CTA bilateral Assessment of Heart: RRR EKG Interpretation: NSR Capillary refill evaluation: Capillary refill < 2 secs Skin Exam: Warm, Dry, Good Turgur ED Reassessment (Disposition) - Reassessment Reassessment:: pt in stable condition while in ER. no recurrence of symptoms. Reassessment Condition:: Improved - Diagnosis Diagnosis:: syncope, dizziness - improving - Patient Disposition Discharge/Transfer:: Acute Care w/in this hosp Admitted to:: Telemetry Admitting Medical Physician:: Killian Conde Time:: 02:30 Condition at Disposition:: Stable, Improved
[2017-09-22 00:59] LABS: % BASOPHILS 2.7 % (0.0-2.0); % EOSINOPHILS 1.8 % (0.0-5.0); % LYMPHOCYTES 33.5 % (20.0-50.0); % MONOCYTES 6.3 % (2.0-10.0); % NEUTROPHILS 55.7 % (40.0-80.0); BASOPHILE ABSOLUTE 0.1 Th/cumm (0-0.2); EOSINOPHILE ABSOLUTE 0.1 Th/cmm (0.1-0.4); HEMATOCRIT 41.6 % (41.0-60); HEMOGLOBIN 13.5 gm/dL (12-16); LYMPHOCYTE ABSOLUTE 1.8 Th/cmm (1.5-3.0); MEAN CELL VOLUME 89.2 fl (81-100); MEAN CORPUSCULAR HGB CONC 32.5 pg (28.0-36.0); MEAN PLATELET VOLUME 8.7 fl; MONOCYTE ABSOLUTE 0.3 Th/cmm (0.3-1.0); NEUTROPHILE ABSOLUTE 3.1 Th/cmm (1.8-8.0); PLATELET COUNT 274 Th/cmm (150-400); RED BLOOD COUNT 4.66 Mil/cmm (3.80-5.20); RED CELL DISTRIBUTION WIDTH 14.2 % (11.5-20.0); WHITE BLOOD COUNT 5.4 Th/cmm (4.8-10.8)
[2017-09-22 00:59] LABS: URINE MICROSCOPIC INDICATED? YES; URINE SOURCE CLEAN C
[2017-09-22 01:01] LABS: URINE BILIRUBIN NEGATIVE (NEGATIVE); URINE BLOOD NEGATIVE (NEGATIVE); URINE GLUCOSE (UA) NEGATIVE (NEGATIVE); URINE KETONE NEGATIVE (NEGATIVE); URINE LEUKOCYTE ESTERASE TRACE (NEGATIVE); URINE NITRATE NEGATIVE (NEGATIVE); URINE PROTEIN NEGATIVE (NEGATIVE); URINE UROBILINOGEN 0.2 E.U./dL (0.2 - 1.0)
[2017-09-22 01:19] LABS: URINE CLARITY CLEAR (CLEAR); URINE COLOR YELLOW
[2017-09-22 01:20] LABS: URINE EPITHELIAL CELLS OCCASIONAL /lpf (FEW); URINE RBC 0-2 /hpf (0-5); URINE WBC 0-2 /hpf (0-5)
[2017-09-22 01:43] LABS: ALB/GLOB RATIO 1.2 (1.0-1.8); ALBUMIN 4.1 gm/dL (3.7-5.3); ALKALINE PHOSPHATASE 86 U/L (34-104); BILIRUBIN,TOTAL 0.2 mg/dL (0.3-1.0); BUN - UREA NITROGEN 18 mg/dL (7-25); CALCIUM SERUM 9.3 mg/dL (8.6-10.3); CARBON DIOXIDE 26.2 mEq/L (21.0-31.0); CHLORIDE 104 mEq/L (98-107); GFR AFRICAN-AMERICAN > 60.0 ml/min (>90); GFR NON AFRICAN-AMERICAN 59.1 ml/min; GLUCOSE 99 mg/dL (70-105); POTASSIUM SERUM 4.2 mEq/L (3.5-5.1); SGOT 18 U/L (13-39); SGPT/ALT 12 U/L (7-52); SODIUM SERUM 140 mEq/L (136-145); TOTAL PROTEIN,SERUM 7.6 gm/dL (6.0-8.3)
[2017-09-22 02:23] LABS: URINE BACTERIA NONE SEEN /hpf (NONE SEEN)
[2017-09-22] MEDS ORDERED: Acetaminophen 500 MG TAB PO PRN ×2 (05:39→09:45)
[2017-09-22 07:12] LABS: % BASOPHILS 0.7 % (0.0-2.0); % EOSINOPHILS 1.7 % (0.0-5.0); % LYMPHOCYTES 40.6 % (20.0-50.0); % MONOCYTES 4.3 % (2.0-10.0); % NEUTROPHILS 52.7 % (40.0-80.0); EOSINOPHILE ABSOLUTE 0.1 Th/cmm (0.1-0.4); HEMATOCRIT 40.7 % (41.0-60); HEMOGLOBIN 13.1 gm/dL (12-16); MEAN CELL VOLUME 88.3 fl (81-100); MEAN CORPUSCULAR HEMOGLOBIN 28.3 pg (27.0-31.0); MEAN CORPUSCULAR HGB CONC 32.1 pg (28.0-36.0); MEAN PLATELET VOLUME 8.7 fl; MONOCYTE ABSOLUTE 0.2 Th/cmm (0.3-1.0); NEUTROPHILE ABSOLUTE 2.7 Th/cmm (1.8-8.0); PLATELET COUNT 227 Th/cmm (150-400); RED BLOOD COUNT 4.62 Mil/cmm (3.80-5.20); RED CELL DISTRIBUTION WIDTH 14.4 % (11.5-20.0)
[2017-09-22 07:26] LABS: INR 1.01 (0.5-1.4); PROTHROMBIN TIME (TEST) 10.5 SECONDS (9.5-11.5)
[2017-09-22 07:30] LABS: ALB/GLOB RATIO 1.2 (1.0-1.8); ALBUMIN 3.9 gm/dL (3.7-5.3); ALKALINE PHOSPHATASE 82 U/L (34-104); ANION GAP 10.6 (7.0-16.0); BILIRUBIN,TOTAL 0.3 mg/dL (0.3-1.0); BUN - UREA NITROGEN 17 mg/dL (7-25); CALCIUM SERUM 9.2 mg/dL (8.6-10.3); CARBON DIOXIDE 27.5 mEq/L (21.0-31.0); CHLORIDE 104 mEq/L (98-107); CHOLESTEROL 177 mg/dL (<200); CREATININE - SERUM 0.9 mg/dL (0.6-1.2); GFR AFRICAN-AMERICAN > 60.0 ml/min (>90); GFR NON AFRICAN-AMERICAN > 60.0 ml/min; GLUCOSE 89 mg/dL (70-105); HDL -HIGH DENSITY LIPOPROTEIN 43 mg/dL (23-92); MAGNESIUM 2.2 mg/dL (1.9-2.7); POTASSIUM SERUM 4.1 mEq/L (3.5-5.1); SGOT 17 U/L (13-39); SGPT/ALT 11 U/L (7-52); SODIUM SERUM 138 mEq/L (136-145); TOTAL PROTEIN,SERUM 7.2 gm/dL (6.0-8.3); TRIGLYCERIDES 120 mg/dL (<150)
--- NOTE | 2017-09-22 07:45 | Diagnostic Imaging Report ---
CT scan of the brain without intravenous contrast HISTORY: Syncope Total DLP equals 612 CTDI equals 35.4 Axial sections were obtained from the base of the skull to the vertex. There is a normal ventricular system size. Hypodensity is seen through the area supratentorial white matter regions without mass effect. Findings may be associated with chronic small vessel ischemic disease. No acute parenchymal abnormalities. No intracerebral hemorrhage. No mass effect or shift of midline structures. No extra-axial masses or abnormal fluid collections. IMPRESSION: 1. No acute abnormalities 2. Supratentorial white matter changes. The findings may be associated with chronic small vessel ischemic disease. If necessary, a follow-up MRI exam would provide additional detail.
[2017-09-22] MEDS ORDERED: Hydrocodone/APAP 10 mg/325 mg Tab PO PRN ×2 (09:24→09:28)
[2017-09-22] MEDS ORDERED: Albuterol Nebulizer 2.5mg/3mL HHN PRN (09:28)
[2017-09-22] MEDS ORDERED: Non-Formulary Item 1 EA (Lisinopril [Lisinopril] 40 MG) PO SCH (09:30)
[2017-09-22] MEDS ORDERED: TURMERIC 500 MG PO SCH (09:30)
[2017-09-22] MEDS ORDERED: Pantoprazole 40 mg EC Tab PO SCH (10:00)
[2017-09-22] MEDS ORDERED: Hydroxychloroquine 200 mg Tab PO SCH (10:00)
--- NOTE | 2017-09-22 10:42 | Diagnostic Imaging Report ---
Portable chest x-ray HISTORY: Shortness of breath Compared to prior exam of March 23, 2017, the heart is enlarged. There is poor visualization of the left lower lobe. This may be related to overlying soft tissues. However, infiltrate and/or atelectasis in the left lower lobe is difficult to exclude. Clinical correlation and follow-up recommended. Atherosclerotic calcification seen within the aorta. IMPRESSION: 1. Poor visualization of the left lower lobe. Underlying infiltrate cannot be excluded. Clinical correlation and follow-up recommended. 2. Cardiomegaly with atherosclerotic vascular changes
--- NOTE | 2017-09-22 12:17 | History & Physical Pre-OP ---
DATE OF SERVICE: 09/22/2017 CHIEF COMPLAINT: Syncopal episodes x 2, dizziness, palpitations. HISTORY OF PRESENT ILLNESS: This is a 66-year-old -[place] female with a history of hypertension, asthma/COPD, GERD, rheumatoid arthritis, Behcet's disease, who was in her usual state of health until last night when while watching TV she apparently passed out twice while in her couch. The first episode lasted about 10 seconds and second episode lasted about 30 seconds. She felt somewhat dizzy afterwards, but was able to drive herself to the ER where pertinent findings include elevated blood pressure (185/88) and a CT of the brain showing no acute abnormalities with supratentorial white matter changes. The patient has been admitted to the tele reyna for further management and care. On further questioning, she does state that her blood pressure has been increasing over the last few weeks and her primary care doctor did start her on metoprolol initially at 25 b.i.d., but given dizziness her dose was decreased at 12.5 b.i.d. Her usual BP runs around 125/80, but at home she also reported a level of 180/80 prior to coming into the ER. PAST MEDICAL HISTORY: As noted above. PAST SURGICAL HISTORY: She underwent a hip surgery sometime ago. FAMILY HISTORY: Essentially noncontributory to this admission. SOCIAL HISTORY: No tobacco, ETOH, or illicit drug usage. ALLERGIES: SHE IS ALLERGIC TO FLU VACCINE AND MEPERIDINE. OUTPATIENT MEDICATIONS: Ventolin metered dose inhaler 1 puff q.4h. p.r.n. as needed, Imuran 50 mg b.i.d., Simon 10/325 t.i.d., Plaquenil 200 mg b.i.d., lisinopril 40 mg every day, metoprolol 12.5 b.i.d., Protonix 40 mg every day, and turmeric powder 500 mg b.i.d. REVIEW OF SYSTEMS: CONSTITUTIONAL: Prior to the episode, no recent ailments. No fever, chills. No weight loss. CARDIOVASCULAR: During the episode, she did feel palpitations, but denied any chest pains or angina equivalent or angina type symptomatology. PULMONARY: No cough or phlegm production. GASTROINTESTINAL: No bowel habit changes. GENITOURINARY: No bladder habit changes. NEUROLOGIC: Please refer to the HPI. She denies any previous similar episodes. She did complain of some headaches prior to the episodes. Denied any blurry vision. PHYSICAL EXAMINATION: VITAL SIGNS: Temperature 97.2, pulse 51-59, blood pressure 187/68 with a respiratory rate of 16-20, and satting 100% on room air. GENERAL: A well-developed and well-nourished female, awake, alert and oriented x 3, currently undergoing a carotid ultrasound. HEAD AND NECK: Normocephalic and atraumatic. Pupils are reactive to light. Extraocular movements are intact. Oropharynx is moist and clear. CARDIAC: Regular rate. Frank. No murmurs. S1, S2 are noted. LUNGS: Clear to auscultation bilaterally. ABDOMEN: Soft, supple, nontender, and nondistended. Normoactive bowel sounds. EXTREMITIES: Lower extremities: Has no pedal edema. NEUROLOGIC: Appears to be nonfocal. Cranial nerves 2-12 are within normal limits. Full exam cannot be done at this time. LABORATORY DATA ON ADMISSION: CBC was essentially within normal limits. Chem-7 was within normal limits. LFTs show no abnormalities. BNP 61. Troponins are negative x 2 sets. UA shows trace leukocyte esterase with 0-2 white blood cells, 0-2 rbc's. DIAGNOSTICS: Please refer to the HPI. IMPRESSION: 1. Syncopal episodes x 2. (Ddx-arrythmia/symptomatic bradycardia?, r/o neuro event) 2. Bradycardia. 3. History of asthma/chronic obstructive pulmonary disease, clinically stable. 4. Hypertension, out of control. 5. History of acid reflux disease, currently stable. 6. History of rheumatoid arthritis/Behcet's syndrome. PLAN: The patient has been admitted to the tele reyna for syncopal workup including a carotid ultrasound, 2D echo, and an MRI of the brain. She has been placed on aspirin 81 every day and has been kept on her other medications as scheduled except for the beta gurjit given her bradycardia. As far as her blood pressure, the patient will be kept on Isordil 10 mg b.i.d., lisinopril 40 mg every day, and hydralazine will be increased to 50 mg b.i.d. Clonidine p.r.n. will be placed on her regimen. Neuro as well as Cardiology consult have also been asked for. [facility]# [id number] MTDNano
[2017-09-22] MEDS ORDERED: Probiotic Screen MC PRN (12:22)
--- NOTE | 2017-09-22 14:20 | Diagnostic Imaging Report ---
Bilateral carotid Doppler ultrasound exam HISTORY: Syncope Sonographic sector images were obtained through the carotid bifurcation regions bilaterally. Associated Doppler data was obtained. The exam of the right side marked tortuosity of the common and to a greater degree internal carotid arteries. There is mild diffuse atherosclerotic plaque along the common carotid artery. Mild atherosclerotic changes noted within the proximal portions of the right internal and external carotid arteries. Antegrade vertebral artery flow. Slight increase in velocity within the distal internal carotid artery. The ICC/CCA flow ratios is elevated (2.7). However in the absence of sonographically demonstrated significant focal plaque, this may be related to the tortuosity of the vessels. The left side demonstrates mild diffuse atherosclerotic plaque throughout the bifurcation region. Slight increase in velocity noted within the distal internal carotid artery. Antegrade vertebral artery flow. There is an increase in the ICA/CCA flow ratio (2.3). Again, in the absence of significant focal plaque sonographically identified, this may be related to marked tortuosity of the vessels. IMPRESSION: 1. Evidence of mild diffuse bilateral atherosclerotic changes. However, Doppler data suggests more significant disease. This discrepancy is probably related to the tortuosity of the vessels. An an MRA or CTA study would provide additional confirmation if needed.
--- NOTE | 2017-09-29 13:02 | Cardiology ---
09/22/2017 ECHOCARDIOGRAM REPORT The patient of Dr. Conde. M-MODE ECHOCARDIOGRAM: Mitral valve, anterior leaflet of mitral valve shows normal excursion, EF velocity. Posterior leaflet of mitral valve shows normal excursion. Left ventricular posterior wall shows increased thickness, normal excursion. Interventricular septum shows increased thickness, normal excursion, hypertrophy of the left ventricle, ejection fraction 55%. Left atrium normal. Aortic root shows normal dimension, normal excursion of aortic leaflets. CONCLUSION: Minimal hypertrophy of the left ventricle, ejection fraction 55%. 2D ECHO ON THE SAME PATIENT: Long axis view show normal-sized left ventricle with hypertrophy of the left ventricle. Left atrium is normal. Right ventricular cavity, right atrium normal, no pericardial effusion. Ejection fraction 55%. Mitral valve and aortic valve normal. Short axis view of aortic valve normal. FINAL CONCLUSION: Hypertrophy of the left ventricle, mild mitral regurgitation, mild tricuspid regurgitation. [facility]# [id number]
== END 2017-09-22 14:45 | disposition left against medical advice (07) | DRG 309 ==
LOC: ER 23:56 → TELE 09-22 05:15
PROVIDERS: ADMIT Internal Medicine; ATTEND Internal Medicine
DX: R00.1 Bradycardia, unspecified (principal); M35.2 Behcet's disease; Z88.8 Allergy status to other drugs, medicaments and biological substances; I10 Essential (primary) hypertension; K21.9 Gastro-esophageal reflux disease without esophagitis; Z53.21 Procedure and treatment not carried out due to patient leaving prior to being seen by health care provider; J44.9 Chronic obstructive pulmonary disease, unspecified; R42 Dizziness and giddiness; M06.9 Rheumatoid arthritis, unspecified; Z82.49 Family history of ischemic heart disease and other diseases of the circulatory system; Z83.3 Family history of diabetes mellitus; Z83.6 Family history of other diseases of the respiratory system
CPT/HCPCS: 36415-UA; 70470-TC; 71045-TC; 80053-TC; 80061-TC; 81001-TC; 83735-TC; 83880-TC; 84443-TC; 84484-TC; 85025-TC; 85610-TC; 93005; 93307-TC; 93880-TC; J7500; Z7610